=== PATIENT | female | born 1955 | race Caucasian/White ===

== ENCOUNTER 2017-03-26 09:00 | Outpatient (CLI) | payer BC, MEDICARE, SELFPAY ==
[2017-03-26] VITALS (10 sets, daily range): BP systolic 109–150; BP diastolic 58–87; PULSE 76–88; RESP 16–18; BMI 32.5
--- NOTE | 2017-03-26 18:41 | PC.NURSE ---
PRE-MEDICATED WITH TYLENOL 650MG PO AND BENADRYL 50MG PO AT 1215. REMICADE INFUSION STARTED AT 1255 WITH RATE OF 10 ML/HR.
--- NOTE | 2017-03-26 18:44 | PC.NURSE ---
INCREASED INFUSION RATE TO 20 ML/HR AT THIS TIME.
--- NOTE | 2017-03-26 18:46 | PC.NURSE ---
INCREASED INFUSION RATE TO 40 ML/HR AT THIS TIME.
--- NOTE | 2017-03-26 18:50 | PC.NURSE ---
INFUSION RATE INCREASED TO 80 ML/HR AT THIS TIME.
--- NOTE | 2017-03-26 18:52 | PC.NURSE ---
INCREASED INFUSION RATE TO 150 ML/HR AT THIS TIME.
--- NOTE | 2017-03-26 18:57 | PC.NURSE ---
Addendum entered by Surekha Hills RN 03/26/17 18:57: Original Note: INFUSION RATE INCREASED TO 250 ML/HR AT THIS TIME.
--- NOTE | 2017-03-26 19:01 | PC.NURSE ---
REMICADE INFUSION COMPLETE AT THIS TIME.
== END 2017-03-26 15:30 | disposition home or self-care (01) ==
LOC: INF 14:17
PROVIDERS: Visit Provider Specialist
DX: K50.90 Crohn's disease, unspecified, without complications (principal)
CPT/HCPCS: 96413; 96415; J1745

== ENCOUNTER 2017-05-14 12:07 | Outpatient (CLI) | payer BC, MEDICARE, SELFPAY ==
[2017-05-14] VITALS (10 sets, daily range): BP systolic 115–126; BP diastolic 63–78; PULSE 87–91; RESP 20; TEMP 36.6; O2SAT 97–98
== END 2017-05-14 15:30 | disposition home or self-care (01) ==
LOC: INF 12:07
PROVIDERS: Visit Provider Internal Medicine Gastroenterology
DX: K50.90 Crohn's disease, unspecified, without complications (principal)
CPT/HCPCS: 96413; 96415; J1745

== ENCOUNTER 2017-06-08 12:36 | Observation (INO) | payer BC, MEDICARE, SELFPAY ==
[2017-06-08 12:50] VITALS: BP 145/71; PULSE 120; RESP 20; TEMP 37.7; O2SAT 96; BMI 32.0
--- NOTE | 2017-06-08 13:02 | HMH.EDUTC ---
[facility] [place] Disposition Clinical Impression: Severe headache, Fever of unknown origin Disposition: Still a Patient Condition on Discharge: Fair Time of Disposition: 13:17 (assisted to ER by Ellie, room 10) Medical Decision Making - Harry Inquiry Pt receiving controlled substance: No Vital Signs: 06/08/17 12:50 Temperature 99.8 F H Temperature Source Temporal Artery Scan Pulse Rate [Right Radial] 120 H Respiratory Rate 20 Blood Pressure [Right Arm] 145/71 Blood Pressure Mean [Right Arm] 95 02 Sat by Pulse Oximetry 96 Oxygen Delivery Method Room Air - Lab Data Lab results reviewed: Yes: I reviewed the patient's lab results. Lab Results 06/08/17 12:54: Influenza Type A Ag Negative, Influenza Type B Ag Negative - Reevaluation(s) Time: 13:15 Reevaluation #1: Discussed possible differentials and [facility] guidelines. patient wants further workup to find cause of fever. Pt agreeable to be transferred to ER for further evaluation. Report called to Farideh Alonso, INSPECTOR AUTOMATIC TYPEWRITER and room 10 available. [facility] [place] HPI - General Stated complaint: fever,chills Time Seen by Provider: 06/08/17 12:50 Mode of Arrival: Family Vehicle Source of Information: Patient Limitations: No Limitations Description of Symptoms (Recalled from Triage Doc. by RN): PT C/O FEVER FOR THE PAST 3 DAYS WITH CHILLS AND BODYACHES. PT STATES SHE DID HAVE AN ACID WASH DONE ON HER FACE SATURDAY AND THINKS THIS COULD BE THE REASON. HEENT Symptoms (Recalled from RN notes): Yes (FEVER,BODYACHES AND CHILLS) Resp Symptoms (Recalled from RN notes): No Skin Symptoms (Recalled from RN notes): No MS Symptoms (Recalled from RN notes): No Functional Status (Recalled from RN notes): NA - History of Present Illness Provider Complaint: c/o fever 102-103 since Saturday, 3 days ago. Severe headache but no other symptoms . Tylenol helps. Last dose early this morning. was told not to take ibuprofen. No known cause. Wonders if could be due to a facial peel she had on Saturday but reports that went well and there was no complications or rash associated w/ it. No known sick contacts. - Related Data Home Medications Medication Instructions Recorded Confirmed Cholestyramine/Aspartame 4 gm PO DAILY 03/26/17 05/14/17 [Prevalite 4gm Powder Pack] Cyanocobalamin (Vitamin B-12) 1,000 mcg IM MONTHLY 03/26/17 05/14/17 [Cyanocobalamin 1,000mcg/mL Vial] Omeprazole [Omeprazole 20mg 20 mg PO DAILY 03/26/17 05/14/17 Capsule] Zolpidem Tartrate [Ambien] 10 mg PO HS 03/26/17 05/14/17 Allergies Allergy/AdvReac Type Severity Reaction Status Date / Time codeine Allergy Intermediate I-HIVES Verified 03/26/17 17:22 Sulfa (Sulfonamide Allergy Intermediate RED RASH Verified 03/26/17 17:21 Antibiotics) FROM TRUE SULFA DRUGS - Worker's Comp Is this a Worker's Comp case?: No [facility] History I have reviewed the patient's past medical history: Yes Medical History: Denies:: Cancer, Diabetes Mellitus Type 1, Diabetes Mellitus Type 2, Hypertension, MRSA Other Medical History: Reports: Other (Crohn's) Other Surgeries: Yes: Other (cholecystectomy, 4 bowel resections) Amputation: No Fractures: No - Social History Smoking Status: Current every day smoker Tobacco Type: cigarettes Alcohol Intake: never - Psychiatric History Expresses thoughts of harming self/others: None Suicide Plan Description: No Plan ROS Obtained: Yes Systems reviewed as appropriate & no additional complaints - Constitutional Constitutional: Reports as per HPI, Reports body ache, Reports chills, Denies difficulty sleeping, Reports fatigue - Eyes Eyes: Denies eye discharge, Denies eye pain - ENT Ears, Nose, Mouth, and Throat: Denies otalgia, Denies nasal congestion, Denies nasal discharge, Denies post nasal drip, Denies sore throat - Cardiovascular Cardiovascular: Denies chest pain, Denies irregular heart rhythm - Respiratory Respiratory: No cough, No dyspnea - Gastrointestinal Gastrointestingal:
[2017-06-08 13:10] LABS: UTC Influenza A Antigen Negative (Negative); UTC Influenza B Antigen Negative (Negative)
--- NOTE | 2017-06-08 13:13 | ED_ITS ---
[facility] [place] Disposition Clinical Impression: Severe headache, Fever of unknown origin Disposition: Still a Patient Condition on Discharge: Fair Time of Disposition: 13:17 (assisted to ER by Ellie, room 10) Medical Decision Making - Harry Inquiry Pt receiving controlled substance: No Vital Signs: 06/08/17 12:50 Temperature 99.8 F H Temperature Source Temporal Artery Scan Pulse Rate [Right Radial] 120 H Respiratory Rate 20 Blood Pressure [Right Arm] 145/71 Blood Pressure Mean [Right Arm] 95 02 Sat by Pulse Oximetry 96 Oxygen Delivery Method Room Air - Lab Data Lab results reviewed: Yes: I reviewed the patient's lab results. Lab Results 06/08/17 12:54: Influenza Type A Ag Negative, Influenza Type B Ag Negative - Reevaluation(s) Time: 13:15 Reevaluation #1: Discussed possible differentials and [facility] guidelines. patient wants further workup to find cause of fever. Pt agreeable to be transferred to ER for further evaluation. Report called to Farideh Alonso, CONSTRUCTION MANAGEMENT INSTRUCTOR and room 10 available. [facility] [place] HPI - General Stated complaint: fever,chills Time Seen by Provider: 06/08/17 12:50 Mode of Arrival: Family Vehicle Source of Information: Patient Limitations: No Limitations Description of Symptoms (Recalled from Triage Doc. by RN): PT C/O FEVER FOR THE PAST 3 DAYS WITH CHILLS AND BODYACHES. PT STATES SHE DID HAVE AN ACID WASH DONE ON HER FACE SATURDAY AND THINKS THIS COULD BE THE REASON. HEENT Symptoms (Recalled from RN notes): Yes (FEVER,BODYACHES AND CHILLS) Resp Symptoms (Recalled from RN notes): No Skin Symptoms (Recalled from RN notes): No MS Symptoms (Recalled from RN notes): No Functional Status (Recalled from RN notes): NA - History of Present Illness Provider Complaint: c/o fever 102-103 since Saturday, 3 days ago. Severe headache but no other symptoms . Tylenol helps. Last dose early this morning. was told not to take ibuprofen. No known cause. Wonders if could be due to a facial peel she had on Saturday but reports that went well and there was no complications or rash associated w/ it. No known sick contacts. - Related Data Home Medications Medication Instructions Recorded Confirmed Cholestyramine/Aspartame 4 gm PO DAILY 03/26/17 05/14/17 [Prevalite 4gm Powder Pack] Cyanocobalamin (Vitamin B-12) 1,000 mcg IM MONTHLY 03/26/17 05/14/17 [Cyanocobalamin 1,000mcg/mL Vial] Omeprazole [Omeprazole 20mg 20 mg PO DAILY 03/26/17 05/14/17 Capsule] Zolpidem Tartrate [Ambien] 10 mg PO HS 03/26/17 05/14/17 Allergies Allergy/AdvReac Type Severity Reaction Status Date / Time codeine Allergy Intermediate I-HIVES Verified 03/26/17 17:22 Sulfa (Sulfonamide Allergy Intermediate RED RASH Verified 03/26/17 17:21 Antibiotics) FROM TRUE SULFA DRUGS - Worker's Comp Is this a Worker's Comp case?: No [facility] History I have reviewed the patient's past medical history: Yes Medical History: Denies:: Cancer, Diabetes Mellitus Type 1, Diabetes Mellitus Type 2, Hypertension, MRSA Other Medical History: Reports: Other (Crohn's) Other Surgeries: Yes: Other (cholecystectomy, 4 bowel resections) Amputation: No Fractures: No - Social History Smoking Status: Current every day smoker Tobacco Type: cigarettes Alcohol Intake: never - Psychiatric History Expresses thoughts of harming self/others: None
[2017-06-08 13:24] VITALS: BP 127/77; PULSE 107; RESP 18; TEMP 38.3; O2SAT 97; BMI 32.0
[2017-06-08 14:02] LABS: Basophils % 0.4 % (0.1-2.0); Eosinophils % 0.3 % (0.1-12.0); Hematocrit 43.4 % (37.0-47.0); Hemoglobin 14.6 g/dL (12.2-16.2); Lymphocytes # 1.4 K/mm3 (0.7-4.5); Mean Corpuscular HGB Conc 33.7 g/dL (31.8-35.4); Mean Corpuscular Hemoglobin 30.1 pg (27.0-31.2); Mean Corpuscular Volume 89.3 fl (81-99); Mean Platelet Volume 8.3 fl (7.4-10.4); Monocytes % 9.5 % (1.7-9.3); Neutrophils # 7.8 K/mm3 (1.8-7.8); Neutrophils % 75.9 % (37.0-80.0); Platelet Count 186 K/mm3 (142-424); Red Blood Count 4.86 M/mm3 (4.20-5.40); Red Cell Distribution Width 12.6 % (11.5-17.5); White Blood Count 10.3 K/mm3 (4.8-10.8)
--- NOTE | 2017-06-08 14:07 | XR_ITS ---
XR chest 2V COMPARISON: None HISTORY: Fever TECHNIQUE: PA and lateral chest FINDINGS: The lung sidhu are well expanded. There is ill-defined opacity in the right lower lobe posterior basilar segment suggestive of pneumonic infiltrate. The cardiac silhouette is normal and the vascularity is normal and is no pleural fluid. IMPRESSION: Ill-defined focal pneumonic infiltrate right lower lobe
[2017-06-08 14:24] LABS: Alanine Aminotransferase 20 U/L (12-78); Albumin Level 3.3 gm/dL (3.4-5.0); Albumin/Globulin Ratio 0.7 (1.1-1.8); Alkaline Phosphatase 88 U/L (46-116); Aspartate Amino Transferase 17 U/L (15-37); Bilirubin,Total 0.3 mg/dL (0.2-1.0); Blood Urea Nitrogen 5 mg/dL (7-18); Calcium 8.8 mg/dL (8.5-10.1); Carbon Dioxide 25 mmol/L (21.0-32.0); Chloride 98 mmol/L (98-107); Creatinine Clearance Estimated 74 mL/min (0-300); Estimated Glomerular Filt Rate 73 ml/min (>60); GFR (African American) 88 ML/MIN (>60); Globulin 4.8 gm/dl (1.3-3.2); Glucose 117 mg/dL (74-106); Sodium 134 mmol/L (136-145); Total Protein,Serum 8.1 gm/dL (6.4-8.2)
--- NOTE | 2017-06-08 14:25 | HMH.EDFEV ---
ED Disposition Clinical Impression: Severe headache, Right lower lobe pneumonia, Immunocompromised, acquired, Crohn's disease Clinical Impression: (Ruled Out): Fever of unknown origin Disposition: Still a Patient Condition on Discharge: Fair Referrals: Provider,Amanda, [Primary Care Provider] - Malathi Masterson MD [Staff Physician] - - Critical Care Critical Care Time: No Attestation: On 06/08/17, the high probability of a clinically significant, sudden or life threatening deterioration of the following system(s) required my full and direct attention, intervention and personal management. The time I documented below is in addition to time spent performing reported procedures but includes the following listed in this critical care notation. Medical Decision Making - Harry Inquiry Pt receiving controlled substance: No Harry was queried for this patient: No Vital Signs: 06/08/17 12:50 06/08/17 13:24 06/08/17 15:14 Temperature 99.8 F H 101.0 F H 103 F H Temperature Source Temporal Artery Scan Oral Oral Pulse Rate [Right Radial] 120 H 107 H 121 H Respiratory Rate 20 18 20 Blood Pressure [Right Arm] 145/71 127/77 157/92 Blood Pressure Mean [Right Arm] 95 93 113 Blood Pressure Source [Right Arm] Automatic Cuff Automatic Cuff Blood Pressure Position [Right Arm] Sitting Sitting 02 Sat by Pulse Oximetry 96 97 99 Oxygen Delivery Method Room Air Room Air Room Air - Lab Data Lab Results 06/08/17 12:54: Influenza Type A Ag Negative, Influenza Type B Ag Negative 06/08/17 13:45: WBC 10.3, RBC 4.86, Hgb 14.6, Hct 43.4, MCV 89.3, MCH 30.1, MCHC 33.7, RDW 12.6, Plt Count 186, MPV 8.3, Neut % (Auto) 75.9, Lymph % (Auto) 14.0, Saline % (Auto) 9.5 H, Eos % (Auto) 0.3, Baso % (Auto) 0.4, Neut # (Auto) 7.8, Lymph # (Auto) 1.4, Saline # (Auto) 1.0, Eos # (Auto) 0.0, Baso # (Auto) 0.0 06/08/17 13:45: Sodium 134 L, Potassium 4.0, Chloride 98, Carbon Dioxide 25, Anion Gap 15.0, BUN 5 L, Creatinine 0.80, Estimated Creat Clear 74, Estimated GFR 73, Est GFR ( Amer) 88, Glucose 117 H, Calcium 8.8, Total Bilirubin 0.3, AST 17, ALT 20, Alkaline Phosphatase 88, Total Protein 8.1, Albumin 3.3 L, Globulin 4.8 H, Albumin/Globulin Ratio 0.7 L 06/08/17 13:45: Lactic Acid 1.4 06/08/17 15:05: Group A Strep Rapid Negative Result diagrams: 06/08/17 13:45 06/08/17 13:45 Orders (Tests/Meds): ED MEDICATIONS Discontinued Medications Generic Name Dose Route Start Last Admin Trade Name Freq PRN Reason Stop Dose Admin Acetaminophen 1,000 mg 06/08/17 15:14 06/08/17 15:15 Tylenol 500mg Tablet PO 06/08/17 15:15 1,000 mg ONCE ONE Administration Sodium Chloride 500 mls @ 999 mls/hr 06/08/17 13:30 06/08/17 13:59 Sod Chlor 0.9% 1000ml Bag IV 06/08/17 14:00 Not Given .Q31M HOMAR Sodium Chloride 1,000 mls @ 999 mls/hr 06/08/17 14:00 06/08/17 13:56 Sod Chlor 0.9% 1000ml Bag IV 06/08/17 15:00 999 mls/hr .Q1H1M HOMAR Administration Ondansetron HCl 4 mg 06/08/17 13:52 06/08/17 13:56 Zofran 4mg/2ml Vial IV 06/08/17 13:53 4 mg ONCE ONE Administration ORDERS Category Date Time Status UA [Urinalysis and Microscopic] Stat Lab 06/08/17 14:07 Ordered Blood Culture Stat Micro 06/08/17 13:45 Received Strep Screen Confirmation Stat Micro 06/08/17 15:05 Received Medical Decision Narrative: 1330 The radiologist contacted me that the patient has a right lower lobe pneumonia. [address] Masterson loss prevention/safety district manager for unassigned to admit he asked me to discuss her with her pcp in [facility]. [address] Siddiqui who asked about the patient preference and the patient said i am not going any where . she wants to be admitted here and I called Dr Masterson again. Fever HPI - General Chief Complaint: Fever Stated Complaint: fever,chills Time Seen by Provider: 06/08/17 12:50 Mode of Arrival: Family Vehicle Source of Information: Patient Limitations: No Limitations Description of Sy
[2017-06-08 14:26] LABS: Lactic Acid 1.4 mmol/L (0.4-2.0)
--- NOTE | 2017-06-08 14:28 | ED_ITS ---
ED Disposition Clinical Impression: Severe headache, Right lower lobe pneumonia, Immunocompromised, acquired, Crohn 's disease Clinical Impression: (Ruled Out): Fever of unknown origin Disposition: Still a Patient Condition on Discharge: Fair Referrals: Provider,Amanda, [Primary Care Provider] - Malathi Masetrson MD [Staff Physician] - - Critical Care Critical Care Time: No Attestation: On 06/08/17, the high probability of a clinically significant, sudden or life threatening deterioration of the following system(s) required my full and direct attention, intervention and personal management. The time I documented below is in addition to time spent performing reported procedures but includes the following listed in this critical care notation. Medical Decision Making - Harry Inquiry Pt receiving controlled substance: No Harry was queried for this patient: No Vital Signs: 06/08/17 12:50 06/08/17 13:24 06/08/17 15:14 Temperature 99.8 F H 101.0 F H 103 F H Temperature Source Temporal Artery Scan Oral Oral Pulse Rate [Right Radial] 120 H 107 H 121 H Respiratory Rate 20 18 20 Blood Pressure [Right Arm] 145/71 127/77 157/92 Blood Pressure Mean [Right Arm] 95 93 113 Blood Pressure Source [Right Arm] Automatic Cuff Automatic Cuff Blood Pressure Position [Right Arm] Sitting Sitting 02 Sat by Pulse Oximetry 96 97 99 Oxygen Delivery Method Room Air Room Air Room Air - Lab Data Lab Results 06/08/17 12:54: Influenza Type A Ag Negative, Influenza Type B Ag Negative 06/08/17 13:45: WBC 10.3, RBC 4.86, Hgb 14.6, Hct 43.4, MCV 89.3, MCH 30.1, MCHC 33.7, RDW 12.6, Plt Count 186, MPV 8.3, Neut % (Auto) 75.9, Lymph % (Auto) 14.0, Gaines % (Auto) 9.5 H, Eos % (Auto) 0.3, Baso % (Auto) 0.4, Neut # (Auto) 7.8, Lymph # (Auto) 1.4, Gaines # (Auto) 1.0, Eos # (Auto) 0.0, Baso # (Auto) 0.0 06/08/17 13:45: Sodium 134 L, Potassium 4.0, Chloride 98, Carbon Dioxide 25, Anion Gap 15.0, BUN 5 L, Creatinine 0.80, Estimated Creat Clear 74, Estimated GFR 73, Est GFR ( Amer) 88, Glucose 117 H, Calcium 8.8, Total Bilirubin 0.3, AST 17, ALT 20, Alkaline Phosphatase 88, Total Protein 8.1, Albumin 3.3 L, Globulin 4.8 H, Albumin/Globulin Ratio 0.7 L 06/08/17 13:45: Lactic Acid 1.4 06/08/17 15:05: Group A Strep Rapid Negative Result diagrams: 06/08/17 13:45 06/08/17 13:45 Orders (Tests/Meds): ED MEDICATIONS Discontinued Medications Generic Name Dose Route Start Last Admin Trade Name Freq PRN Reason Stop Dose Admin Acetaminophen 1,000 mg 06/08/17 15:14 06/08/17 15:15 Tylenol 500mg Tablet PO 06/08/17 15:15 1,000 mg ONCE ONE Administration Sodium Chloride 500 mls @ 999 mls/hr 06/08/17 13:30 06/08/17 13:59 Sod Chlor 0.9% 1000ml Bag IV 06/08/17 14:00 Not Given .Q31M HOMAR Sodium Chloride 1,000 mls @ 999 mls/hr 06/08/17 14:00 06/08/17 13:56 Sod Chlor 0.9% 1000ml Bag IV 06/08/17 15:00 999 mls/hr .Q1H1M HOMAR Administration Ondansetron HCl 4 mg 06/08/17 13:52 06/08/17 13:56 Zofran 4mg/2ml Vial IV 06/08/17 13:53 4 mg ONCE ONE Administration ORDERS Category Date Time Status UA [Urinalysis and Microscopic] Stat Lab 06/08/17 14:07 Ordered Blood Culture Stat Micro 06/08/17 13:45 Received Strep Screen Confirmation Stat Micro 06/08/17 15:05 Received
[2017-06-08 15:14] VITALS: BP 157/92; PULSE 121; RESP 20; TEMP 39.4; O2SAT 99
[2017-06-08 15:22] LABS: Strep Scrn Group A (Rapid) Negative (Negative)
--- NOTE | 2017-06-08 15:35 | PC.NURSE ---
Dr Wagner discussed case with Dr Masterson
--- NOTE | 2017-06-08 15:41 | PC.NURSE ---
Dr Blevins paged per request of Dr Masterson
--- NOTE | 2017-06-08 15:46 | PC.NURSE ---
Dr Wagner discussed case with Dr Siddiqui instrumentation controls engineer for Dr Blevins
--- NOTE | 2017-06-08 15:47 | PC.NURSE ---
Dr Wagner discussed case with Dr Masterson again
[2017-06-08 15:54] LABS: Microscopic, Urine URINE MICROSCOPIC (MICROSCOPIC)
[2017-06-08 15:57] LABS: Appearance,Urine SL CLOUDY (Clear); Bilirubin,Urine Negative (Negative); Blood, Urine 1+ (Negative); Color,Urine YELLOW (Yellow); Glucose,Urine (UA) Negative (Negative); Ketones,Urine Negative (Negative); Leukocyte Esterase,Urine Negative (Negative); Nitrate,Urine Negative (Negative); Protein,Urine Negative (Negative); Specific Gravity, Urine <= 1.005 (1.005-1.030); Urobilinogen,Urine 0.2 EU/dl (0.2)
[2017-06-08 16:08] LABS: Bacteria,Urine 2+ /lpf
[2017-06-08 16:55] VITALS: BP 115/72; PULSE 89; RESP 18; TEMP 37.1; O2SAT 94; BMI 33.3
--- NOTE | 2017-06-08 16:58 | PC.NURSE ---
PHOTOGRAMMETRIC STEREO COMPILER CALLED AND STATED THAT ROOM WOULD BE READY IN 10 MIN.
--- NOTE | 2017-06-08 17:32 | PC.NURSE ---
REPORT CALLED TO ROSALBA PEDRAZA RN
--- NOTE | 2017-06-08 19:15 | PC.NURSE ---
PT FULL CODE, REPORT FROM KEVIN
--- NOTE | 2017-06-08 19:36 | PC.NURSE ---
report given to naveed uribe rn
[2017-06-08 20:00] VITALS: BP 145/70; PULSE 99; RESP 18; TEMP 37.2; O2SAT 97
--- NOTE | 2017-06-08 21:32 | HMH.HP ---
*Admission Date: 06/08/17 *Chief complaint: Shaking chills *History of present illness: This 62-year-old white female presented to the emergency room at [facility]. She complained of having fever and shaking chills for the past 3 or 4 days. Her temperature had gone to 103 today she was concerned. She does take Remicade for Crohn's disease which she has had for over 30 years. She denies cough congestion or stomach pain. She states she had a relatively normal bowel movement this morning. She takes cholestyramine daily. Though her white count was not elevated the emergency room doctor was concerned about her presentation and wanted to admit her for some IV antibiotics. She did receive some Rocephin and azithromycin in the emergency room. She continues to complain of chills. Her chest x-ray raised the question of possible infiltrate though she has not been symptomatic for pulmonary symptoms. [facility] History Medical History: Denies:: Cancer, Diabetes Mellitus Type 1, Diabetes Mellitus Type 2, Hypertension, MRSA, Peripheral Vascular Disease Other Medical History: Reports: Other (Crohn's) Other Surgeries: Yes: Appendectomy, Tubal Ligation, Other (cholecystectomy, 4 bowel resections) Amputation: No Fractures: No Comment: She has had for bowel resections related to her Crohn's. She has had difficulty with fistulas. - *Social History Educational Level: Attended College Smoking Status: Current every day smoker Tobacco Type: cigarettes # Packs/Day (cigarettes): 20 Alcohol Intake: never Occupational Status: disabled Household Members: spouse - Psychiatric History Expresses thoughts of harming self/others: None Suicide Plan Description: No Plan *Family Hx:: Cancer, Diabetes, Hyperlipidemia, Stroke, Thyroid Disorder, Tuberculosis Comment: Her father of colon/stomach cancer at age 75. Her mother of diabetes complications at age 82. She has 5 sisters and one brother. She has 2 sons. She is 4 para 2 AB 2. : 4 Para: 2 A: 2 LMP comments: post menopausal Review of Systems - Constitutional Reports body ache(s), Reports chills, Reports fever(s) - Eyes Denies change in vision - ENT Denies bleeding gums, Denies dizziness, Denies difficulty swallowing - *Cardiovascular Denies chest pain - *Respiratory Denies change in phlegm color, Denies chest congestion, Denies cough, Denies shortness of breath, Denies coughing up blood - *Gastrointestinal Denies abdominal pain, Denies change in bowel habits, Denies coffee ground vomit, Denies cramping, Denies loose stools, Denies difficulty swallowing - *Genitourinary Denies abnormal vaginal bleeding - *Musculoskeletal Denies abnormal walking, Denies joint pain - Integumentary/Breasts Denies change in skin color - *Neurologic Denies abnormal hearing, Denies behavioral changes, Denies dizziness, Denies loss of vision - Hematologic/Lymphatic Denies easy bruising Meds Home Medications Medication Instructions Recorded Confirmed Type Cholestyramine/Aspartame 4 gm PO DAILY 03/26/17 06/08/17 History [Prevalite 4gm Powder Pack] Cyanocobalamin (Vitamin B-12) 1,000 mcg IM MONTHLY 03/26/17 06/08/17 History [Cyanocobalamin 1,000mcg/mL Vial] Omeprazole [Omeprazole 20mg 20 mg PO DAILY 03/26/17 06/08/17 History Capsule] Zolpidem Tartrate [Ambien] 10 mg PO HS 03/26/17 06/08/17 History Allergies Allergy/AdvReac Type Severity Reaction Status Date / Time codeine Allergy Intermediate Hives Verified 06/08/17 18:19 Sulfa (Sulfonamide Allergy Intermediate RED RASH Verified 06/08/17 18:19 Antibiotics) FROM TRUE SULFA DRUGS Exam Vital signs and Labs for Last 24 Hours: Temp Pulse Resp BP Pulse Ox 99.0 F 99 H 18 145/70 97 06/08/17 20:00 06/08/17 20:00 06/08/17 20:00 06/08/17 20:00 06/08/17 20:00 I & O for Last 24 hours: Intake & Output 06/06/17 06/07/17 06/08/17 06/09/17 11:59 11:59 11:59 11:59
--- NOTE | 2017-06-08 21:35 | P.HP_ITS ---
*Admission Date: 06/08/17 *Chief complaint: Shaking chills *History of present illness: This 62-year-old white female presented to the emergency room at [facility]. She complained of having fever and shaking chills for the past 3 or 4 days. Her temperature had gone to 103 today she was concerned. She does take Remicade for Crohn's disease which she has had for over 30 years. She denies cough congestion or stomach pain. She states she had a relatively normal bowel movement this morning. She takes cholestyramine daily. Though her white count was not elevated the emergency room doctor was concerned about her presentation and wanted to admit her for some IV antibiotics. She did receive some Rocephin and azithromycin in the emergency room. She continues to complain of chills. Her chest x-ray raised the question of possible infiltrate though she has not been symptomatic for pulmonary symptoms. [facility] History Medical History: Denies:: Cancer, Diabetes Mellitus Type 1, Diabetes Mellitus Type 2, Hypertension, MRSA, Peripheral Vascular Disease Other Medical History: Reports: Other (Crohn's) Other Surgeries: Yes: Appendectomy, Tubal Ligation, Other (cholecystectomy, 4 bowel resections) Amputation: No Fractures: No Comment: She has had for bowel resections related to her Crohn's. She has had difficulty with fistulas. - *Social History Educational Level: Attended College Smoking Status: Current every day smoker Tobacco Type: cigarettes # Packs/Day (cigarettes): 20 Alcohol Intake: never Occupational Status: disabled Household Members: spouse - Psychiatric History Expresses thoughts of harming self/others: None Suicide Plan Description: No Plan *Family Hx:: Cancer, Diabetes, Hyperlipidemia, Stroke, Thyroid Disorder, Tuberculosis Comment: Her father of colon/stomach cancer at age 75. Her mother of diabetes complications at age 82. She has 5 sisters and one brother. She has 2 sons. She is 4 para 2 AB 2. : 4 Para: 2 A: 2 LMP comments: post menopausal Review of Systems - Constitutional Reports body ache(s), Reports chills, Reports fever(s) - Eyes Denies change in vision - ENT Denies bleeding gums, Denies dizziness, Denies difficulty swallowing - *Cardiovascular Denies chest pain - *Respiratory Denies change in phlegm color, Denies chest congestion, Denies cough, Denies shortness of breath, Denies coughing up blood - *Gastrointestinal Denies abdominal pain, Denies change in bowel habits, Denies coffee ground vomit , Denies cramping, Denies loose stools, Denies difficulty swallowing - *Genitourinary Denies abnormal vaginal bleeding - *Musculoskeletal Denies abnormal walking, Denies joint pain - Integumentary/Breasts Denies change in skin color - *Neurologic Denies abnormal hearing, Denies behavioral changes, Denies dizziness, Denies loss of vision - Hematologic/Lymphatic Denies easy bruising Meds Home Medications Medication Instructions Recorded Confirmed Type Cholestyramine/Aspartame 4 gm PO DAILY 03/26/17 06/08/17 History [Prevalite 4gm Powder Pack] Cyanocobalamin (Vitamin B-12) 1,000 mcg IM MONTHLY 03/26/17 06/08/17 History [Cyanocobalamin 1,000mcg/mL Vial] Omeprazole [Omeprazole 20mg 20 mg PO DAILY 03/26/17 06/08/17 History Capsule] Zolpidem Tartrate [Ambien] 10 mg PO HS 03/26/17 06/08/17 History Allergies Allergy/AdvReac Type Severity Reaction Status Date / Time
--- NOTE | 2017-06-08 21:39 | PC.NURSE ---
Dr Masterson here. New orders received
[2017-06-08 21:45] VITALS: PULSE 99; O2SAT 97
[2017-06-09 04:00] VITALS: BP 98/50; PULSE 66; RESP 18; TEMP 36.9; O2SAT 100
--- NOTE | 2017-06-09 05:53 | PC.NURSE ---
PT SLEPT INTERVALS THIS SHIFT. RESPIRATIONS EVEN AND UNLABORED WITH LUNGS EQUAL AND CLEAR THROUGHOUT. NO COUGH NOTED. STILL NEED SPUTUM SPECIMEN. SPECIMEN CUP ON BEDSIDE TABLE, REMINDED PT ABOUT IT. IV SECURE AND PATENT. PT HAS ORDER FOR LABS THIS A.M. PT STABLE. WILL CONTINUE TO MONITOR. REPORT TO BE GIVEN TO ONCOMING NURSE.
[2017-06-09 06:26] LABS: Basophils # 0.1 K/mm3 (0-0.2); Basophils % 0.6 % (0.1-2.0); Eosinophils % 0.4 % (0.1-12.0); Hematocrit 37.2 % (37.0-47.0); Lymphocytes # 1.7 K/mm3 (0.7-4.5); Lymphocytes % 19.7 K/mm3 (10-50); Mean Corpuscular HGB Conc 32.4 g/dL (31.8-35.4); Mean Corpuscular Hemoglobin 29.5 pg (27.0-31.2); Mean Corpuscular Volume 91.1 fl (81-99); Mean Platelet Volume 8.3 fl (7.4-10.4); Monocytes # 0.9 K/mm3 (0.1-1.0); Monocytes % 10.7 % (1.7-9.3); Neutrophils # 5.8 K/mm3 (1.8-7.8); Neutrophils % 68.6 % (37.0-80.0); Platelet Count 168 K/mm3 (142-424); Red Blood Count 4.08 M/mm3 (4.20-5.40); Red Cell Distribution Width 12.8 % (11.5-17.5); White Blood Count 8.5 K/mm3 (4.8-10.8)
[2017-06-09 06:52] LABS: Alanine Aminotransferase 14 U/L (12-78); Albumin Level 2.6 gm/dL (3.4-5.0); Albumin/Globulin Ratio 0.8 (1.1-1.8); Alkaline Phosphatase 69 U/L (46-116); Anion Gap 13.4 mEq/L (5-15); Aspartate Amino Transferase 11 U/L (15-37); Bilirubin,Total 0.2 mg/dL (0.2-1.0); Blood Urea Nitrogen 6 mg/dL (7-18); Calcium 7.7 mg/dL (8.5-10.1); Carbon Dioxide 23 mmol/L (21.0-32.0); Chloride 106 mmol/L (98-107); Creatinine Clearance Estimated 77 mL/min (0-300); Creatinine,Serum 0.67 mg/dL (0.55-1.02); Estimated Glomerular Filt Rate 89 ml/min (>60); GFR (African American) 108 ML/MIN (>60); Globulin 3.3 gm/dl (1.3-3.2); Magnesium 1.5 mg/dL (1.4-2.2); Potassium 3.4 mmoL/L (3.5-5.1); Sodium 139 mmol/L (136-145); Total Protein,Serum 5.9 gm/dL (6.4-8.2)
[2017-06-09 06:53] LABS: Glucose 161 mg/dL (74-106)
--- NOTE | 2017-06-09 07:18 | PC.NURSE ---
REPORT GIVEN TO Leonila SMITH W/C
[2017-06-09 08:00] VITALS: BP 140/65; PULSE 85; RESP 18; TEMP 36.3; O2SAT 95
--- NOTE | 2017-06-09 08:13 | PC.NURSE ---
0715 - Report received from Collins Ibrahim RN
--- NOTE | 2017-06-09 09:27 | P.CONPHA_ITS ---
[facility] Pharmacy VTE Monitoring - Patient Demographics Admission date: 06/09/17 Report Date: 06/09/17 Time: 09:26 Allergies/Adverse Reactions: Patient Allergies codeine Allergy (Intermediate, Verified 06/08/17 18:19) Hives Sulfa (Sulfonamide Antibiotics) Allergy (Intermediate, Verified 06/08/17 18:19) RED RASH FROM TRUE SULFA DRUGS Height: 1.57 m Weight: 82.645 kg Patient Problems: Current Active Problems Severe headache (Acute) Right lower lobe pneumonia (Acute) Immunocompromised, acquired (Chronic) Crohn's disease (Chronic) Fever and chills (Acute) - VTE Risk Labs: VTE Related Lab Results Hgb 12.0 g/dL (12.2-16.2) L D 06/09/17 06:05 Hct 37.2 % (37.0-47.0) 06/09/17 06:05 Plt Count 168 K/mm3 (142-424) 06/09/17 06:05 BUN 6 mg/dL (7-18) L 06/09/17 06:05 Creatinine 0.67 mg/dL (0.55-1.02) 06/09/17 06:05 Estimated Creat Clear 77 mL/min (0-300) 06/09/17 06:05 Was VTE Risk Assessment Performed: Yes VTE Score: 2 VTE Risk Level: Low Risk - Prophylaxis Types of VTE Prophylaxis: TEDS Knee High Location of Applied Device: Bilateral Lower Extremeties - VTE Diagnosis Confirmed Comment: ED KAY ORDERED
--- NOTE | 2017-06-09 10:19 | P.PN_ITS ---
Internal Medicine - PN: Subj *Date: 06/09/17 *Time: 10:18 Interval history: She feels much better this morning. She does not have chills. She does not have fever. Her white blood cell count is normal. Her abdomen is soft and her lungs are clear. She would like to go home today. Exam Vital signs and Labs for Last 24 Hours: Temp Pulse Resp BP Pulse Ox 97.4 F L 85 18 140/65 95 06/09/17 08:00 06/09/17 08:00 06/09/17 08:00 06/09/17 08:00 06/09/17 08:00 Laboratory Results - last 24 hr 06/09/17 06:05: WBC 8.5, RBC 4.08 L, Hgb 12.0 L D, Hct 37.2, MCV 91.1, MCH 29.5 , MCHC 32.4, RDW 12.8, Plt Count 168, MPV 8.3, Neut % (Auto) 68.6, Lymph % (Auto ) 19.7, Antelope % (Auto) 10.7 H, Eos % (Auto) 0.4, Baso % (Auto) 0.6, Neut # (Auto ) 5.8, Lymph # (Auto) 1.7, Antelope # (Auto) 0.9, Eos # (Auto) 0.0, Baso # (Auto) 0.1 06/09/17 06:05: Sodium 139, Potassium 3.4 L, Chloride 106, Carbon Dioxide 23, Anion Gap 13.4, BUN 6 L, Creatinine 0.67, Estimated Creat Clear 77, Estimated GFR 89, Est GFR ( Amer) 108 D, Glucose 161 H D, Calcium 7.7 L D, Magnesium 1.5, Total Bilirubin 0.2, AST 11 L D, ALT 14 D, Alkaline Phosphatase 69, Total Protein 5.9 L D, Albumin 2.6 L D, Globulin 3.3 H, Albumin/Globulin Ratio 0.8 L I & O for Last 24 hours: Intake & Output 06/06/17 06/07/17 06/08/17 06/09/17 11:59 11:59 11:59 11:59 Intake Total 832 / 832 Output Total 400 / 400 Balance 432 / 432 Weight 182 lb 3.2 oz - Constitutional no acute distress - *Routine Abdominal Exam Present: soft. 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 Possible discharge later today.
[2017-06-09 15:34] VITALS: BP 124/69; PULSE 90; RESP 18; TEMP 36.5; O2SAT 96
--- NOTE | 2017-06-09 16:01 | PC.NURSE ---
Pt is A&Ox4 in NAD. VSS. Afebrile. Heart rate reg. Lungs CTA. Pt denies pain. IV (R) wrist infusing NS @ 100ml/hr /s difficulty. No s/s of infiltration or infection at insertion site. Bed in low position, call williamson within reach. Will continue to monitor.
--- NOTE | 2017-06-10 22:31 | HMH.DCSUM ---
General - General Admission date: 06/08/17 Discharge date: 06/09/17 HPI HPI: This 62-year-old white female presented to the emergency room at [facility]. She complained of having fever and shaking chills for the past 3 or 4 days. Her temperature had gone to 103 today and she was concerned. She does take Remicade for Crohn's disease which she has had for over 30 years. She denies cough congestion or stomach pain. She states she had a relatively normal bowel movement this morning. She takes cholestyramine daily. Though her white count was not elevated, the emergency room doctor was concerned about her presentation and wanted to admit her for some IV antibiotics. She did receive some Rocephin and azithromycin in the emergency room. She continues to complain of chills. Her chest x-ray raised the question of possible infiltrate though she has not been symptomatic for pulmonary symptoms. Hospital Course Hospital Course: By the next day, she felt much better. She did not have chills. She did not have fever. Her white blood cell count was normal. Her abdomen was soft and her lungs were clear. She wanted to go home and was stable to be discharged. Objective Vital signs: Temp Pulse Resp BP Pulse Ox 97.7 F 90 18 124/69 96 06/09/17 15:34 06/09/17 15:34 06/09/17 15:34 06/09/17 15:34 06/09/17 15:34 Narrative: - Constitutional no acute distress Comments: She is chilling in bed. - *Routine HEENT Exam Eye: Present: PERRL ENT: Present: mucous membranes dry - *Routine Neck Exam Present: supple - Routine Chest/Breast/Axilla Exam Comments: Normal configuration - *Routine Respiratory Exam Present: decreased breath sounds, CTA bilaterally - *Routine Cardiovascular Exam Present: RRR - *Routine Abdominal Exam Present: soft. Absent: tenderness Comments: Hyperactive bowel sounds - *Routine Rectal Exam Comments: Deferred at this time - *Routine Extremities Exam Absent: edema - Routine Back/Spine/Pelvis Exam Back/Spine: Absent: CVA tenderness - *Routine Skin Exam Present: intact - *Routine Neurological Exam Present: alert, oriented X3. Absent: altered mental status DS: Diagnosis - Discharge Diagnosis (1) Fever and chills Status: Acute (2) Right lower lobe pneumonia Status: Acute (3) Severe headache Status: Acute (4) Crohn's disease Status: Chronic (5) Immunocompromised, acquired Status: Chronic Discharge Plan - Patient Discharge Instructions ACTIVITY: Continue current activity DIET: continue same diet Additional Instructions: The patient was informed regarding her antibiotic treatment. She has received 2 total doses of Rocephin. She was given 1 dose of Levaquin last evening. Her shaking chills resolved quickly. She will be continued on Cefdinir 300mg bid. If she were to have recurrence of her shaking chills it may mean that we need to resort to continue doses of Levaquin. I do feel that her symptoms are related to her Crohn's, thus gram negatives could be involved. Patient Instructions: DI for Pneumonia -- Adult - Follow up Plan Follow up with: Tobi Jimenez [Referring] - Disposition: Home, Self-Half-Way Medications: Home Medications Medication Instructions Recorded Confirmed Type Cholestyramine/Aspartame 4 gm PO DAILY 03/26/17 06/08/17 History [Prevalite 4gm Powder Pack] Cyanocobalamin (Vitamin B-12) 1,000 mcg IM MONTHLY 03/26/17 06/08/17 History [Cyanocobalamin 1,000mcg/mL Vial] Zolpidem Tartrate [Ambien] 10 mg PO HS 03/26/17 06/08/17 History Prescriptions/Medication Reconciliation: New Nicotine [Nicoderm 21mg/24hr patch] 21 mg TD DAILYP PRN #30 patch.td24 PRN Reason: Nicotine Cravings Cefdinir [Omnicef 300mg Capsule] 300 mg PO BID #14 cap Continue Zolpidem Tartrate [Ambien] 10 mg PO HS Cholestyramine/Aspartame [Prevalite 4gm Powder Pack] 4 gm PO DAILY Cy
--- NOTE | 2017-06-10 22:35 | P.DS_ITS ---
General - General Admission date: 06/08/17 Discharge date: 06/09/17 HPI HPI: This 62-year-old white female presented to the emergency room at [facility]. She complained of having fever and shaking chills for the past 3 or 4 days. Her temperature had gone to 103 today and she was concerned. She does take Remicade for Crohn's disease which she has had for over 30 years. She denies cough congestion or stomach pain. She states she had a relatively normal bowel movement this morning. She takes cholestyramine daily. Though her white count was not elevated, the emergency room doctor was concerned about her presentation and wanted to admit her for some IV antibiotics. She did receive some Rocephin and azithromycin in the emergency room. She continues to complain of chills. Her chest x-ray raised the question of possible infiltrate though she has not been symptomatic for pulmonary symptoms. Hospital Course Hospital Course: By the next day, she felt much better. She did not have chills. She did not have fever. Her white blood cell count was normal. Her abdomen was soft and her lungs were clear. She wanted to go home and was stable to be discharged. Objective Vital signs: Temp Pulse Resp BP Pulse Ox 97.7 F 90 18 124/69 96 06/09/17 15:34 06/09/17 15:34 06/09/17 15:34 06/09/17 15:34 06/09/17 15:34 Narrative: - Constitutional no acute distress Comments: She is chilling in bed. - *Routine HEENT Exam Eye: Present: PERRL ENT: Present: mucous membranes dry - *Routine Neck Exam Present: supple - Routine Chest/Breast/Axilla Exam Comments: Normal configuration - *Routine Respiratory Exam Present: decreased breath sounds, CTA bilaterally - *Routine Cardiovascular Exam Present: RRR - *Routine Abdominal Exam Present: soft. Absent: tenderness Comments: Hyperactive bowel sounds - *Routine Rectal Exam Comments: Deferred at this time - *Routine Extremities Exam Absent: edema - Routine Back/Spine/Pelvis Exam Back/Spine: Absent: CVA tenderness - *Routine Skin Exam Present: intact - *Routine Neurological Exam Present: alert, oriented X3. Absent: altered mental status DS: Diagnosis - Discharge Diagnosis (1) Fever and chills Status: Acute (2) Right lower lobe pneumonia Status: Acute (3) Severe headache Status: Acute (4) Crohn's disease Status: Chronic (5) Immunocompromised, acquired Status: Chronic Discharge Plan - Patient Discharge Instructions ACTIVITY: Continue current activity DIET: continue same diet Additional Instructions: The patient was informed regarding her antibiotic treatment. She has received 2 total doses of Rocephin. She was given 1 dose of Levaquin last evening. Her shaking chills resolved quickly. She will be continued on Cefdinir 300mg bid. If she were to have recurrence of her shaking chills it may mean that we need to resort to continue doses of Levaquin. I do feel that her symptoms are related to her Crohn's, thus gram negatives could be involved. Patient Instructions: DI for Pneumonia -- Adult - Follow up Plan Follow up with: Tobi Jimenez [Referring] - Disposition: Home, Self-Chcf Medications: Home Medications Medication Instructions Recorded Confirmed Type Cholestyramine/Aspartame 4 gm PO DAILY 03/26/17 06/08/17 History
== END 2017-06-09 17:04 | disposition home or self-care (01) ==
LOC: UTC 13:17 → ER 13:24 → 2ND 16:22
PROVIDERS: Nurse Practitioner Family; Admitting Provider Family Medicine; Emergency Provider Emergency Medicine; PCP Family Medicine; Visit Provider Family Medicine
DX: J18.1 Lobar pneumonia, unspecified organism (principal); K50.90 Crohn's disease, unspecified, without complications
CPT/HCPCS: 36415; 71046; 80053; 81001; 83605; 83735; 85025; 87040; 87086; 87430; 87804; 96365; 96367; 96375; 99285; G0378; J0456; J2405

== ENCOUNTER 2017-07-05 12:18 | Outpatient (CLI) | payer BC, MEDICARE, SELFPAY ==
[2017-07-05] VITALS (10 sets, daily range): BP systolic 108–160; BP diastolic 55–76; PULSE 66–79; RESP 20; TEMP 36.7–37.1; O2SAT 95–98
== END 2017-07-05 15:20 | disposition home or self-care (01) ==
LOC: INF 12:18
PROVIDERS: PCP Family Medicine; Visit Provider Internal Medicine Gastroenterology
DX: K50.90 Crohn's disease, unspecified, without complications (principal)
CPT/HCPCS: 96413; 96415; J1745

== ENCOUNTER → 2017-08-13 13:31 | Outpatient (CLI) | payer BC, MEDICARE, SELFPAY ==
--- NOTE | 2017-08-13 13:34 | MR_ITS ---
MR shoulder RT wo con COMPARISON: None HISTORY: Rotator cuff tear, right shoulder pain with limited range of motion and weakness ORDERING PHYSICIAN: Gurwinder Monroy PATIENT AGE: 62 years TECHNIQUE: Routine multiplanar multiecho sequences are performed without contrast. FINDINGS: There is complete tear of the supraspinatus tendon with mild retraction of the musculotendinous fibers. Small amount fluid is present in the subdeltoid region. Hypertrophic changes are present at the acromioclavicular joint with spurring along the inferior aspect of the acromion. There is tendinopathy/tendinosis of the infraspinatus tendon as well as the subscapularis tendon. Teres minor tendon appears intact. No obvious labral tear. Bicipital tendon is in place. There is a small shoulder joint effusion. IMPRESSION: 1. Complete tear of the supraspinatus tendon with mild retraction of the musculotendinous fibers 2. Shoulder joint effusion. 3. Tendinopathy/tendinosis of the infraspinatus and subscapularis tendons
== END ==
PROVIDERS: PCP Family Medicine; Visit Provider Orthopaedic Surgery Adult Reconstructive Orthopaedic Surgery
DX: M75.101 Unspecified rotator cuff tear or rupture of right shoulder, not specified as traumatic (principal)
CPT/HCPCS: 73221

== ENCOUNTER 2017-08-30 11:50 | Outpatient (CLI) | payer BC, MEDICARE, SELFPAY ==
[2017-08-30] VITALS (10 sets, daily range): BP systolic 103–162; BP diastolic 54–79; PULSE 74–87; RESP 16–18
== END 2017-08-30 15:25 | disposition home or self-care (01) ==
LOC: INF 12:04
PROVIDERS: PCP Family Medicine; Visit Provider Specialist
DX: K50.90 Crohn's disease, unspecified, without complications (principal)
CPT/HCPCS: 96413; 96415; J1745

== ENCOUNTER 2017-10-16 12:00 | Outpatient (CLI) | payer BC, MEDICARE, SELFPAY ==
[2017-10-16] VITALS (10 sets, daily range): BP systolic 108–125; BP diastolic 53–77; PULSE 73–88; RESP 16–18; TEMP 36.7
== END 2017-10-16 15:25 | disposition home or self-care (01) ==
LOC: INF 12:13
PROVIDERS: PCP Family Medicine; Visit Provider Specialist
DX: K50.90 Crohn's disease, unspecified, without complications (principal)
CPT/HCPCS: 96413; 96415; J1745

== ENCOUNTER 2017-12-05 11:55 | Outpatient (CLI) | payer BC, MEDICARE, SELFPAY ==
[2017-12-05] VITALS (9 sets, daily range): BP systolic 108–135; BP diastolic 52–79; PULSE 74–85; RESP 16–20; TEMP 36.5–36.7; O2SAT 97–98
== END 2017-12-05 15:10 | disposition home or self-care (01) ==
LOC: INF 12:02
PROVIDERS: PCP Family Medicine; Visit Provider Specialist
DX: K50.90 Crohn's disease, unspecified, without complications (principal)
CPT/HCPCS: 96413; 96415; J1745

== ENCOUNTER 2018-01-31 11:55 | Outpatient (CLI) | payer BC, MEDICARE, SELFPAY ==
[2018-01-31] VITALS (10 sets, daily range): BP systolic 111–140; BP diastolic 68–81; PULSE 75–86; RESP 16–18; O2SAT 96
== END 2018-01-31 15:25 | disposition home or self-care (01) ==
LOC: INF 12:12
PROVIDERS: Visit Provider Specialist
DX: K50.90 Crohn's disease, unspecified, without complications (principal)
CPT/HCPCS: 96413; 96415; J1745

== ENCOUNTER 2018-03-28 11:45 | Outpatient (CLI) | payer BC, MEDICARE, SELFPAY ==
[2018-03-28] VITALS (10 sets, daily range): BP systolic 107–143; BP diastolic 58–80; PULSE 81–94; RESP 16–18; O2SAT 98
== END 2018-03-28 15:35 | disposition home or self-care (01) ==
PROVIDERS: Visit Provider Specialist
DX: K50.90 Crohn's disease, unspecified, without complications (principal)
CPT/HCPCS: 96413; 96415; J1745

== ENCOUNTER → 2018-05-20 12:33 | Outpatient (CLI) | payer MEDICARE, BC, SELFPAY ==
[2018-05-20] VITALS (8 sets, daily range): BP systolic 118–135; BP diastolic 65–74; PULSE 66–90; RESP 20; TEMP 36.9; O2SAT 95
== END ==
PROVIDERS: Visit Provider Specialist
DX: K50.90 Crohn's disease, unspecified, without complications (principal)
CPT/HCPCS: 96413; 96415; J1745

== ENCOUNTER 2018-07-07 12:37 | Outpatient (CLI) | payer MEDICARE, BC, SELFPAY ==
[2018-07-07] VITALS (7 sets, daily range): BP systolic 118–128; BP diastolic 74–78; PULSE 68–81; RESP 20; TEMP 36.9; O2SAT 95
== END 2018-07-07 15:45 | disposition home or self-care (01) ==
LOC: INF 12:37
PROVIDERS: Visit Provider Specialist
DX: K50.90 Crohn's disease, unspecified, without complications (principal)
CPT/HCPCS: 96413; 96415; J1745

== ENCOUNTER 2018-08-25 12:15 | Outpatient (CLI) | payer MEDICARE, BC, SELFPAY ==
[2018-08-25] VITALS (11 sets, daily range): BP systolic 116–155; BP diastolic 57–82; PULSE 71–92; RESP 16–18; TEMP 36.6; O2SAT 96
== END 2018-08-25 15:15 | disposition home or self-care (01) ==
LOC: INF 12:22
PROVIDERS: Visit Provider Specialist
DX: K50.90 Crohn's disease, unspecified, without complications (principal)
CPT/HCPCS: 96413; 96415; J1745

== ENCOUNTER 2018-10-13 12:19 | Outpatient (CLI) | payer MEDICARE, BC, SELFPAY ==
[2018-10-13] VITALS (11 sets, daily range): BP systolic 134–161; BP diastolic 70–94; PULSE 72–88; RESP 16–18; TEMP 36.7
== END 2018-10-13 15:30 | disposition home or self-care (01) ==
LOC: INF 12:19
PROVIDERS: Visit Provider Specialist
DX: K50.90 Crohn's disease, unspecified, without complications (principal)
CPT/HCPCS: 96413; 96415; J1745

== ENCOUNTER 2018-12-01 12:23 | Outpatient (CLI) | payer MEDICARE, BC, SELFPAY ==
[2018-12-01 13:29] VITALS: BP 137/76; PULSE 77; RESP 18; O2SAT 98
[2018-12-01 14:15] VITALS: BP 124/73; PULSE 76; RESP 18
[2018-12-01 14:55] VITALS: BP 137/73; PULSE 93; RESP 18
[2018-12-01 15:27] VITALS: BP 131/73; PULSE 76; RESP 18
[2018-12-01 16:00] VITALS: BP 115/70; PULSE 77; RESP 18
[2018-12-01 16:39] VITALS: BP 114/73; PULSE 75; RESP 18
== END 2018-12-01 16:40 | disposition home or self-care (01) ==
LOC: INF 12:23
PROVIDERS: Visit Provider Specialist
DX: K50.90 Crohn's disease, unspecified, without complications (principal)
CPT/HCPCS: 96413; 96415; J1745

== ENCOUNTER 2019-01-19 12:05 | Outpatient (CLI) | payer MEDICARE, BC, SELFPAY ==
[2019-01-19] VITALS (8 sets, daily range): BP systolic 119–136; BP diastolic 62–72; PULSE 87–94; RESP 20; TEMP 36.2; O2SAT 97–98
== END 2019-01-19 15:46 | disposition home or self-care (01) ==
LOC: INF 12:26
PROVIDERS: Visit Provider Specialist
DX: K50.90 Crohn's disease, unspecified, without complications (principal)
CPT/HCPCS: 96413; 96415; J1745

== ENCOUNTER 2019-03-09 11:15 | Outpatient (CLI) | payer MEDICARE, BC, SELFPAY ==
[2019-03-09] VITALS (8 sets, daily range): BP systolic 103–133; BP diastolic 59–80; PULSE 77–84; RESP 18; TEMP 36.6; O2SAT 98–100
== END 2019-03-09 14:45 | disposition home or self-care (01) ==
LOC: INF 11:15
PROVIDERS: Visit Provider Specialist
DX: K50.90 Crohn's disease, unspecified, without complications (principal)
CPT/HCPCS: 96413; 96415; J1745

== ENCOUNTER 2019-04-27 12:06 | Outpatient (CLI) | payer MEDICARE, BC, SELFPAY ==
[2019-04-27] VITALS (10 sets, daily range): BP systolic 116–166; BP diastolic 59–92; PULSE 76–85; RESP 18
== END 2019-04-27 15:10 | disposition home or self-care (01) ==
LOC: INF 12:06
DX: K50.90 Crohn's disease, unspecified, without complications (principal)
CPT/HCPCS: 96413; 96415; J1745

== ENCOUNTER 2019-06-15 10:59 | Outpatient (CLI) | payer MEDICARE, BC, SELFPAY ==
[2019-06-15] VITALS (8 sets, daily range): BP systolic 121–152; BP diastolic 76–82; PULSE 81–99; RESP 18; TEMP 36.6; O2SAT 98–99
== END 2019-06-15 14:23 | disposition home or self-care (01) ==
LOC: INF 10:59
PROVIDERS: Visit Provider Specialist
DX: K50.90 Crohn's disease, unspecified, without complications (principal)
CPT/HCPCS: 96413; 96415; J1745

== ENCOUNTER 2019-08-03 11:05 | Outpatient (CLI) | payer MEDICARE, BC, SELFPAY ==
[2019-08-03] VITALS (11 sets, daily range): BP systolic 123–160; BP diastolic 60–111; PULSE 71–82; RESP 18
== END 2019-08-03 14:05 | disposition home or self-care (01) ==
LOC: INF 11:27
DX: K50.90 Crohn's disease, unspecified, without complications (principal)
CPT/HCPCS: 96413; 96415; J1745

== ENCOUNTER 2019-09-21 11:00 | Outpatient (CLI) | payer MEDICARE, BC, SELFPAY ==
[2019-09-21] VITALS (8 sets, daily range): BP systolic 122–131; BP diastolic 59–79; PULSE 84–93; RESP 18; TEMP 36.7; O2SAT 97–98
== END 2019-09-21 14:20 | disposition home or self-care (01) ==
LOC: INF 11:21
PROVIDERS: Visit Provider Specialist
DX: K50.90 Crohn's disease, unspecified, without complications (principal)
CPT/HCPCS: 96413; 96415; J1745

== ENCOUNTER 2019-11-09 10:50 | Outpatient (CLI) | payer MEDICARE, BC, SELFPAY ==
[2019-11-09] VITALS (10 sets, daily range): BP systolic 106–145; BP diastolic 55–80; PULSE 73–88; RESP 18; TEMP 36.4; O2SAT 99
== END 2019-11-09 14:20 | disposition home or self-care (01) ==
LOC: INF 11:00
PROVIDERS: Visit Provider Specialist
DX: K50.90 Crohn's disease, unspecified, without complications (principal)
CPT/HCPCS: 96413; 96415; J1745

== ENCOUNTER 2019-12-28 11:05 | Outpatient (CLI) | payer MEDICARE, BC, SELFPAY ==
[2019-12-28] VITALS (9 sets, daily range): BP systolic 113–136; BP diastolic 71–89; PULSE 81–86; RESP 18; TEMP 36.6; O2SAT 98–100
== END 2019-12-28 14:26 | disposition home or self-care (01) ==
LOC: INF 11:05
PROVIDERS: Visit Provider Specialist
DX: K50.90 Crohn's disease, unspecified, without complications (principal)
CPT/HCPCS: 96413; 96415; J1745

== ENCOUNTER 2020-02-15 10:59 | Outpatient (CLI) | payer MEDICARE, BC, SELFPAY ==
[2020-02-15] VITALS (9 sets, daily range): BP systolic 122–134; BP diastolic 68–85; PULSE 70–78; RESP 18; TEMP 36.2; O2SAT 98–100
== END 2020-02-15 14:13 | disposition home or self-care (01) ==
LOC: INF 10:59
PROVIDERS: Visit Provider Specialist
DX: K50.90 Crohn's disease, unspecified, without complications (principal)
CPT/HCPCS: 96413; 96415; J1745

== ENCOUNTER 2020-04-04 11:04 | Outpatient (CLI) | payer MEDICARE, BC, SELFPAY ==
[2020-04-04] VITALS (11 sets, daily range): BP systolic 95–131; BP diastolic 49–77; PULSE 73–88; RESP 18; TEMP 36.2
== END 2020-04-04 14:25 | disposition home or self-care (01) ==
LOC: INF 11:04
PROVIDERS: Visit Provider Specialist
DX: K50.90 Crohn's disease, unspecified, without complications (principal)
CPT/HCPCS: 96413; 96415; J1745

== ENCOUNTER 2020-05-16 10:55 | Outpatient (CLI) | payer MEDICARE, BC, SELFPAY ==
[2020-05-16] VITALS (9 sets, daily range): BP systolic 113–132; BP diastolic 51–77; PULSE 72–84; RESP 18; TEMP 36.2; O2SAT 99–100
== END 2020-05-16 14:15 | disposition home or self-care (01) ==
LOC: INF 11:22
PROVIDERS: Visit Provider Specialist
DX: K50.813 Crohn's disease of both small and large intestine with fistula (principal)
CPT/HCPCS: 96413; 96415; J1745

== ENCOUNTER 2020-07-04 11:41 | Outpatient (CLI) | payer MEDICARE, BC, SELFPAY ==
[2020-07-04] VITALS (8 sets, daily range): BP systolic 108–148; BP diastolic 60–87; PULSE 81–91; RESP 18; TEMP 36.2; O2SAT 98–99
== END 2020-07-04 14:30 | disposition home or self-care (01) ==
LOC: INF 11:41
PROVIDERS: Visit Provider Specialist
DX: K50.813 Crohn's disease of both small and large intestine with fistula (principal)
CPT/HCPCS: 96413; 96415; J1745

== ENCOUNTER 2020-08-22 10:17 | Emergency (ER) | payer MEDICARE, BC, SELFPAY ==
[2020-08-22 10:20] VITALS: BP 125/76; PULSE 90; RESP 21; TEMP 36.9; O2SAT 95; BMI 32.0
--- NOTE | 2020-08-22 10:59 | HMH.EDUTC ---
[facility] Disposition Clinical Impression: Bronchitis Sinusitis Qualifiers: Sinusitis location: unspecified location Chronicity: acute Recurrence: non-recurrent Qualified Code(s): J01.90 - Acute sinusitis, unspecified Disposition: Home, Self-Care Condition on Discharge: Good Instructions: DI for Sinusitis, DI for Acute Bronchitis Additional Instructions: Drink plenty of fluids. Take tylenol or ibuprofen for pain or fever. Take the medications as directed. Follow up with your regular doctor. GO TO THE ER FOR ANY WORSENING SYMPTOMS Don't start the oral steroids (prednisone) until tomorrow, since you had the shot here today. Prescriptions: Promethazine/Dextromethorphan [Promethazine-Dm Syrup] 5 ml PO Q6HP PRN #240 syrup PRN Reason: Cough Transmission Status: Received by [id number] predniSONE [Deltasone 10mg tablet] 10 mg PO BID 3 Days #6 tab Transmission Status: Received by [id number] Azithromycin [Z-Valentín 250mg Tab*] 250 mg PO UD DOSE PK #6 tab Transmission Status: Received by [id number] Referrals: Tobi Jimenez [Primary Care Provider] - Time of Disposition: 11:32 Medical Decision Making - Medical Records Medical records reviewed: No: I reviewed the patient's medical records. - Harry Inquiry Pt receiving controlled substance: No Vital Signs: 08/22/20 10:20 08/22/20 11:19 Temperature 98.5 F 98.5 F Temperature Source Oral Pulse Rate 90 Pulse Rate [Right Brachial] 90 Respiratory Rate 21 21 Blood Pressure 125/76 Blood Pressure [Right Arm] 125/76 Blood Pressure Mean [Right Arm] 92 Blood Pressure Source [Right Arm] Automatic Cuff Blood Pressure Position [Right Arm] Sitting 02 Sat by Pulse Oximetry 95 Oxygen Delivery Method Room Air Orders (Tests/Meds): ED MEDICATIONS Discontinued Medications Generic Name Dose Route Start Last Admin Trade Name Freq PRN Reason Stop Dose Admin Ceftriaxone Sodium 1 gm 08/22/20 11:06 08/22/20 11:18 Ceftriaxone 1gm Vial IM 08/22/20 11:07 1 gm ONCE ONE Administration Protocol Lidocaine HCl 0 ml 08/22/20 11:06 08/22/20 11:18 Lidocaine 1% 5ml Pf Vial IM 08/22/20 11:07 2.1 ml ONCE ONE Administration Methylprednisolone Sodium Succinate 125 mg 05/31/21 11:06 08/22/20 11:18 Methylprednisolone Sod Succ 125mg Vial IM 08/22/20 11:07 125 mg ONCE ONE Administration [facility] HPI - General Stated complaint: bronchits Time Seen by Provider: 08/22/20 10:59 Mode of Arrival: Ambulatory Source of Information: Patient Limitations: No Limitations Description of Symptoms (Recalled from Triage Doc. by RN): PATIENT C/O SINUS PRESSURE, NASAL DRAINAGE AND PRODUCTIVE COUGH WITH CLEAR SPUTUM SINCE SATURDAY HEENT Symptoms (Recalled from RN notes): Yes Resp Symptoms (Recalled from RN notes): Yes Skin Symptoms (Recalled from RN notes): No MS Symptoms (Recalled from RN notes): No Functional Status (Recalled from RN notes): WNL - History of Present Illness Provider Complaint: She states that she has been coughing and having chest and sinus congestion for the past 3 days. - Related Data Home Medications Medication Instructions Recorded Confirmed Zolpidem Tartrate [Ambien 10mg 10 mg PO HS 03/26/17 08/22/20 Tablet] Infliximab [Remicade] 100 mg IV WEEKLY 08/22/20 08/22/20 Previous Rx's Medication Instructions Recorded Azithromycin [Z-Valentín 250mg Tab*] 250 mg PO UD DOSE PK #6 tab 08/22/20 Promethazine/Dextromethorphan 5 ml PO Q6HP PRN #240 syrup 08/22/20 [Promethazine-Dm Syrup] predniSONE [Deltasone 10mg tablet] 10 mg PO BID 3 Days #6 tab 08/22/20 Allergies Allergy/AdvReac Type Severity Reaction Status Date / Time codeine Allergy Intermediate Hives Verified 07/05/17 17:00 Sulfa (Sulfonamide Allergy Intermediate RED RASH Verified 07/05/17 17:00 Antibiotics) FROM TRUE SULFA DRUGS - Worker's Comp Is this a Worker's Comp case?: No [facility] History - Hepatitis
[2020-08-22 11:19] VITALS: BP 125/76; PULSE 90; RESP 21; TEMP 36.9; O2SAT 95
== END 2020-08-22 11:37 | disposition home or self-care (01) ==
PROVIDERS: Emergency Provider Nurse Practitioner Family; PCP Internal Medicine
DX: J20.9 Acute bronchitis, unspecified (principal); J01.90 Acute sinusitis, unspecified; F17.210 Nicotine dependence, cigarettes, uncomplicated; Z88.2 Allergy status to sulfonamides; Z88.5 Allergy status to narcotic agent
CPT/HCPCS: G0463; 96372; 99202

== ENCOUNTER 2020-08-29 10:07 | Emergency (ER) | payer MEDICARE, BC, SELFPAY ==
[2020-08-29 10:18] VITALS: BP 121/77; PULSE 86; RESP 19; TEMP 36.6; O2SAT 99; BMI 28.2
[2020-08-29 10:22] VITALS: BP 121/77; PULSE 86; RESP 19; TEMP 36.6
--- NOTE | 2020-08-29 10:26 | HMH.EDUTC ---
[facility] [place] Clinical Impression: Cough Disposition: Home, Self-Care Condition on Discharge: Good Instructions: DI for Cough -- Adult, Albuterol Oral Inhalation Additional Instructions: ? Monitor temp. Tylenol every 4 hours as needed and / or ibuprofen every 6 hours as needed ( As long as your primary care physician has told you that it ok to take both. For fever/aches/pains ER if no less than 101 despite Tylenol or Motrin ? Humidifier/vaporizer or hot steamy shower ? Inhaler every 4-6 hours as needed like we discussed. If unsure how to use it, ask pharmacist to demonstrate how. Should help open airways and improve cough, wheezing, and shortness of breath ? Mucinex during the day for your cough and cough suppressant only at night. Be sure to drink lots of water. Insurance may not cover a prescriptions for mucinex. Might be cheaper to get 400mg tablets and take 2 tablet in the morning, mid-day and evening with lots of water. *Promethazine DM cough syrup will cause drowsiness. Use only at night. No driving, operating machinery or caring for small children after taking it Follow up with Doctor if no improvement or any worsening of symptoms Follow up IMMEDIATELY for new or worsening of symptoms OR no noticeable improvement over the next 48-72 hours. 911 immediately for any life threatening symptoms such as chest pain or difficulty breathing Prescriptions: Albuterol Sulfate [Proventil-HFA 90mcg/puff Inh] 1 - 2 puffs IH Q4HP PRN #1 inh PRN Reason: Shortness Of Breath Transmission Status: Received by [id number] Referrals: oTbi Jimenez [Primary Care Provider] - As needed Time of Disposition: 10:42 Medical Decision Making - Harry Inquiry Pt receiving controlled substance: No Harry was queried for this patient: No Vital Signs: 08/29/20 10:18 08/29/20 10:22 Temperature 97.8 F 97.8 F Temperature Source Oral Pulse Rate 86 Pulse Rate [Right] 86 Respiratory Rate 19 19 Blood Pressure 121/77 Blood Pressure [Right Arm] 121/77 Blood Pressure Mean [Right Arm] 91 Blood Pressure Source [Right Arm] Automatic Cuff Blood Pressure Position [Right Arm] Sitting 02 Sat by Pulse Oximetry 99 Medical Decision Narrative: Discussed chest xray and patient declined at this time State that she has completed her medication and feels better just wants something to help with cough and she was afraid to take her remicaid injection today [facility] [place] - General Stated complaint: congestion Time Seen by Provider: 08/29/20 10:26 Mode of Arrival: Ambulatory Source of Information: Patient Limitations: No Limitations Description of Symptoms (Recalled from Triage Doc. by RN): pt c/o cought and congestion x2 weeks. HEENT Symptoms (Recalled from RN notes): Yes (sinus pressure) Resp Symptoms (Recalled from RN notes): Yes (cough) Skin Symptoms (Recalled from RN notes): No MS Symptoms (Recalled from RN notes): No Functional Status (Recalled from RN notes): na - History of Present Illness Provider Complaint: Patient is an everyday smoker, state that she was seen and treated about week ago for bronchitis States that she has finished her medication and her sinus drainage is better and no longer having productive cough reports over all feels better but still having cough and feeling like she coughs so much at times that it makes her feel SOB States that she was suppose to get her weekly injection today but she was concerned where she just finished antibiotics and wanted to wait so she came in to see if she could get something else to help with the cough - Related Data Home Medications Medication Instructions Recorded Confirmed Zolpidem Tartrate [Ambien 10mg 10 mg PO HS 03/26/17 08/22/20 Tablet] Infliximab [Remicade] 100 mg IV WEEKLY 08/22/20 08/22/20 Previous Rx's Medication Instructions Recorded Azithromycin [Z-Valentín 250mg Tab*] 250 mg PO UD DOSE PK #6 tab 08/22/20 Promethazine/Dextromethorphan 5 ml PO Q6HP PRN #240 sy
== END 2020-08-29 10:47 | disposition home or self-care (01) ==
PROVIDERS: Emergency Provider Nurse Practitioner; PCP Internal Medicine
DX: R05 Cough (principal); F17.210 Nicotine dependence, cigarettes, uncomplicated; K50.90 Crohn's disease, unspecified, without complications; Z79.899 Other long term (current) drug therapy; Z88.2 Allergy status to sulfonamides; Z88.5 Allergy status to narcotic agent
CPT/HCPCS: 99202; G0463

== ENCOUNTER 2020-08-31 11:14 | Outpatient (CLI) | payer MEDICARE, BC, SELFPAY ==
[2020-08-31] VITALS (10 sets, daily range): BP systolic 91–136; BP diastolic 54–88; PULSE 74–98; RESP 16–18; TEMP 36.8; O2SAT 99
== END 2020-08-31 14:30 | disposition home or self-care (01) ==
LOC: INF 11:14
PROVIDERS: Visit Provider Specialist
DX: K50.813 Crohn's disease of both small and large intestine with fistula (principal)
CPT/HCPCS: 96413; 96415; J1745

== ENCOUNTER 2020-10-26 10:53 | Outpatient (CLI) | payer MEDICARE, BC, SELFPAY ==
[2020-10-26] VITALS (9 sets, daily range): BP systolic 104–139; BP diastolic 54–79; PULSE 72–80; RESP 16; O2SAT 97
== END 2020-10-26 14:10 | disposition home or self-care (01) ==
LOC: INF 10:55
PROVIDERS: PCP Internal Medicine; Visit Provider Specialist
DX: K50.813 Crohn's disease of both small and large intestine with fistula (principal)
CPT/HCPCS: 96413; 96415; J1745

== ENCOUNTER 2020-12-21 11:13 | Outpatient (CLI) | payer MEDICARE, BC, SELFPAY ==
[2020-12-21] VITALS (10 sets, daily range): BP systolic 119–156; BP diastolic 59–88; PULSE 69–86; RESP 16–18; O2SAT 99
== END 2020-12-21 14:55 | disposition home or self-care (01) ==
LOC: INF 11:15
PROVIDERS: Visit Provider Specialist
DX: K50.813 Crohn's disease of both small and large intestine with fistula (principal)
CPT/HCPCS: 96413; 96415; J1745

== ENCOUNTER 2021-02-13 10:57 | Outpatient (CLI) | payer MEDICARE, BC, SELFPAY ==
[2021-02-13] VITALS (10 sets, daily range): BP systolic 105–132; BP diastolic 58–83; PULSE 72–79; RESP 16–18; TEMP 36.4; O2SAT 99
== END 2021-02-13 14:20 | disposition home or self-care (01) ==
LOC: INF 10:59
PROVIDERS: Visit Provider Specialist
DX: K50.813 Crohn's disease of both small and large intestine with fistula (principal)
CPT/HCPCS: 96413; 96415; J1745

== ENCOUNTER 2021-04-03 09:48 | Outpatient (CLI) | payer MEDICARE, OTHER, SELFPAY ==
[2021-04-03] VITALS (7 sets, daily range): BP systolic 111–147; BP diastolic 54–88; PULSE 71–98; RESP 18; O2SAT 98
== END 2021-04-03 13:15 | disposition home or self-care (01) ==
LOC: INF 09:53
PROVIDERS: PCP Internal Medicine; Visit Provider Specialist
DX: K50.813 Crohn's disease of both small and large intestine with fistula (principal)
CPT/HCPCS: 96413; 96415; J1745

== ENCOUNTER 2021-05-29 10:02 | Outpatient (CLI) | payer MEDICARE, OTHER, SELFPAY ==
[2021-05-29 10:20] VITALS: BP 123/74; PULSE 87; RESP 16; TEMP 36.3; O2SAT 100
[2021-05-29 10:41] VITALS: BP 110/65; PULSE 73; RESP 16; TEMP 36.3; O2SAT 100
[2021-05-29 11:10] VITALS: BP 116/64; PULSE 74; RESP 16; TEMP 36.3; O2SAT 100
[2021-05-29 11:40] VITALS: BP 116/60; PULSE 82; RESP 16; TEMP 36.3; O2SAT 100
[2021-05-29 12:52] VITALS: BP 120/88; PULSE 74; RESP 16; TEMP 36.3; O2SAT 100
[2021-05-29 13:05] VITALS: BP 120/70; PULSE 79; RESP 16; TEMP 36.3; O2SAT 100
== END 2021-05-29 13:20 | disposition home or self-care (01) ==
LOC: INF 10:04
PROVIDERS: Visit Provider Specialist
DX: K50.813 Crohn's disease of both small and large intestine with fistula (principal)
CPT/HCPCS: 96365; 96366; J1745

== ENCOUNTER 2021-07-17 10:11 | Outpatient (CLI) | payer MEDICARE, OTHER, SELFPAY ==
[2021-07-17] VITALS (10 sets, daily range): BP systolic 103–146; BP diastolic 52–89; PULSE 73–90; RESP 18; TEMP 36.6; O2SAT 99–100; BMI 33.3
== END 2021-07-17 13:50 | disposition home or self-care (01) ==
LOC: INF 10:14
PROVIDERS: PCP Internal Medicine; Visit Provider Specialist
DX: K50.813 Crohn's disease of both small and large intestine with fistula (principal)
CPT/HCPCS: 96413; 96415; J1745

== ENCOUNTER 2021-09-11 10:03 | Outpatient (CLI) | payer MEDICARE, OTHER, SELFPAY ==
[2021-09-11] VITALS (12 sets, daily range): BP systolic 99–149; BP diastolic 53–80; PULSE 68–85; RESP 18; O2SAT 98
== END 2021-09-11 13:40 | disposition home or self-care (01) ==
PROVIDERS: PCP Internal Medicine; Visit Provider Specialist
DX: K50.813 Crohn's disease of both small and large intestine with fistula (principal)
CPT/HCPCS: 96413; 96415; J1745

== ENCOUNTER 2021-11-06 11:28 | Outpatient (CLI) | payer MEDICARE, OTHER, SELFPAY ==
[2021-11-06] VITALS (8 sets, daily range): BP systolic 113–136; BP diastolic 65–84; PULSE 83–88; RESP 18; TEMP 36.6; O2SAT 97–98
== END 2021-11-06 14:46 | disposition home or self-care (01) ==
LOC: INF 11:29
PROVIDERS: PCP Internal Medicine; Visit Provider Specialist
DX: K50.813 Crohn's disease of both small and large intestine with fistula (principal)
CPT/HCPCS: 96413; 96415; J1745

== ENCOUNTER 2022-01-01 11:13 | Outpatient (CLI) | payer MEDICARE, OTHER, SELFPAY ==
[2022-01-01] VITALS (9 sets, daily range): BP systolic 117–148; BP diastolic 68–79; PULSE 69–88; RESP 18; TEMP 36.4; O2SAT 97–98
== END 2022-01-01 15:03 | disposition home or self-care (01) ==
PROVIDERS: Visit Provider Specialist
DX: K50.813 Crohn's disease of both small and large intestine with fistula (principal)
CPT/HCPCS: 96413; 96415; J1745

== ENCOUNTER 2022-02-26 10:55 | Outpatient (CLI) | payer MEDICARE, OTHER, SELFPAY ==
[2022-02-26 12:00] VITALS: BP 122/74; PULSE 71; RESP 18; O2SAT 98
[2022-02-26 12:30] VITALS: BP 132/72; PULSE 73; RESP 18; TEMP 36.3; O2SAT 98
[2022-02-26 12:55] VITALS: BP 129/72; PULSE 71; RESP 18; O2SAT 99
[2022-02-26 13:30] VITALS: BP 133/71; PULSE 76; RESP 18; O2SAT 98
[2022-02-26 14:00] VITALS: BP 132/74; PULSE 73; RESP 18; O2SAT 99
[2022-02-26 14:12] VITALS: BP 134/72; PULSE 78; RESP 18; O2SAT 99
== END 2022-02-26 14:15 | disposition home or self-care (01) ==
LOC: INF 10:57
PROVIDERS: PCP Internal Medicine; Visit Provider Specialist
DX: K50.813 Crohn's disease of both small and large intestine with fistula (principal)
CPT/HCPCS: 96413; 96415; J1745

== ENCOUNTER 2022-04-26 11:01 | Outpatient (CLI) | payer MEDICARE, OTHER, SELFPAY ==
[2022-04-26] VITALS (7 sets, daily range): BP systolic 98–126; BP diastolic 46–74; PULSE 76–92; RESP 18; TEMP 36.7; O2SAT 100
== END 2022-04-26 14:05 | disposition home or self-care (01) ==
LOC: INF 11:02
PROVIDERS: Visit Provider Specialist
DX: K50.813 Crohn's disease of both small and large intestine with fistula (principal)
CPT/HCPCS: 96413; 96415; J1745

== ENCOUNTER 2022-06-21 10:54 | Outpatient (CLI) | payer MEDICARE, OTHER, SELFPAY ==
[2022-06-21 11:40] VITALS: BP 104/65; PULSE 73; RESP 16; O2SAT 100
[2022-06-21 12:10] VITALS: BP 98/74; PULSE 81; RESP 16
[2022-06-21 12:40] VITALS: BP 116/56; PULSE 81; RESP 16
[2022-06-21 13:10] VITALS: BP 102/52; PULSE 79; RESP 16
[2022-06-21 13:40] VITALS: BP 102/56; PULSE 81; RESP 16
[2022-06-21 14:00] VITALS: BP 108/62; PULSE 82; RESP 16
== END 2022-06-21 14:20 | disposition home or self-care (01) ==
LOC: INF 10:55
PROVIDERS: Visit Provider Specialist
DX: K50.813 Crohn's disease of both small and large intestine with fistula (principal)
CPT/HCPCS: 96413; 96415; J1745

== ENCOUNTER 2022-08-16 11:02 | Outpatient (CLI) | payer MEDICARE, OTHER, SELFPAY ==
[2022-08-16 11:55] VITALS: BP 116/67; PULSE 76; RESP 16; TEMP 36.3; O2SAT 99
[2022-08-16 12:25] VITALS: BP 130/72; PULSE 81; RESP 16
[2022-08-16 12:55] VITALS: BP 96/48; PULSE 84; RESP 16
[2022-08-16 13:25] VITALS: BP 103/59; PULSE 86; RESP 16
[2022-08-16 13:55] VITALS: BP 99/57; PULSE 84; RESP 16
[2022-08-16 14:20] VITALS: BP 110/64; PULSE 78; RESP 16
== END 2022-08-16 14:40 | disposition home or self-care (01) ==
LOC: INF 11:03
PROVIDERS: PCP Internal Medicine; Visit Provider Specialist
DX: K50.813 Crohn's disease of both small and large intestine with fistula (principal)
CPT/HCPCS: 96413; 96415; J1745

== ENCOUNTER 2022-10-09 11:05 | Outpatient (CLI) | payer MEDICARE, OTHER, SELFPAY ==
[2022-10-09] VITALS (7 sets, daily range): BP systolic 102–136; BP diastolic 46–76; PULSE 74–85; RESP 18; O2SAT 100
== END 2022-10-09 14:55 | disposition home or self-care (01) ==
LOC: INF 11:08
PROVIDERS: PCP Internal Medicine; Visit Provider Specialist
DX: K50.813 Crohn's disease of both small and large intestine with fistula (principal)
CPT/HCPCS: 96413; 96415; J1745

== ENCOUNTER 2022-12-11 11:00 | Outpatient (CLI) | payer MEDICARE, OTHER, SELFPAY ==
[2022-12-11] VITALS (7 sets, daily range): BP systolic 101–127; BP diastolic 55–69; PULSE 73–83; RESP 18; O2SAT 97
== END 2022-12-11 14:35 | disposition home or self-care (01) ==
LOC: INF 11:01
PROVIDERS: PCP Internal Medicine; Visit Provider Specialist
DX: K50.813 Crohn's disease of both small and large intestine with fistula (principal)
CPT/HCPCS: 96413; 96415; J1745

== ENCOUNTER 2023-02-05 10:45 | Outpatient (CLI) | payer MEDICARE, OTHER, SELFPAY ==
[2023-02-05] VITALS (9 sets, daily range): BP systolic 130–141; BP diastolic 70–79; PULSE 71–78; RESP 20; TEMP 36.6; O2SAT 97
== END 2023-02-05 14:10 | disposition home or self-care (01) ==
LOC: INF 10:46
PROVIDERS: PCP Internal Medicine; Visit Provider Specialist
DX: K50.813 Crohn's disease of both small and large intestine with fistula (principal)
CPT/HCPCS: 96413; 96415; J1745

== ENCOUNTER 2023-04-04 11:10 | Outpatient (CLI) | payer MEDICARE, OTHER, SELFPAY ==
[2023-04-04] MEDS: diphenhydrAMINE 25MG CAPSULE 25 MG PO (11:21)
[2023-04-04] MEDS: ACETAMINOPHEN 325MG TAB 650 MG PO (11:21)
[2023-04-04] MEDS: SODIUM CHLORIDE 0.9% 50ML BAG 50 ML IV (11:21)
[2023-04-04] MEDS: inFLIXimab 400 MG in 0.9 % SODIUM CHLORIDE 250 ML 83.3329999999999984 MG IV (11:53)
[2023-04-04 12:00] VITALS: BP 140/82; PULSE 82; RESP 17; O2SAT 98
[2023-04-04 12:30] VITALS: BP 142/70; PULSE 90; RESP 16
[2023-04-04 13:00] VITALS: BP 111/59; PULSE 77; RESP 15
[2023-04-04 13:30] VITALS: BP 112/54; PULSE 82; RESP 15
[2023-04-04 14:00] VITALS: BP 110/54; PULSE 84; RESP 15
[2023-04-04 14:25] VITALS: BP 126/68; PULSE 88; RESP 15
== END 2023-04-04 14:47 | disposition home or self-care (01) ==
LOC: INF 11:11
PROVIDERS: PCP Internal Medicine; Visit Provider Specialist
DX: K50.813 Crohn's disease of both small and large intestine with fistula (principal)
CPT/HCPCS: 96413; 96415; J1745

== ENCOUNTER 2023-05-05 10:05 | Emergency (ER) | payer MEDICARE, OTHER, SELFPAY ==
[2023-05-05 10:56] VITALS: BP 147/81; PULSE 86; RESP 18; TEMP 36.6; O2SAT 96; BMI 31.4
--- NOTE | 2023-05-05 10:58 | EXP.UTC ---
Discharge Plan Disposition Patient Disposition: Home, Self-Care Condition: Good Prescriptions Prescriptions: New amoxicillin [amoxicillin] 875 mg tablet 875 mg PO Q12H Qty: 20 0RF benzonatate [benzonatate] 100 mg capsule 100 mg PO TIDP PRN (Reason: Cough) Qty: 30 0RF methylprednisolone 4 mg Tablets,Dose Pack 4 mg PO DIRECTED 6 Days Qty: 21 0RF Rx Instructions: Take 1 pack as directed for 6 days guaifenesin [Mucinex] 600 mg tablet extended release 12hr 600 - 1,200 mg PO BIDP PRN (Reason: Congestion) Qty: 30 0RF No Action zolpidem [Ambien] 10 MG tablet 10 mg PO HS infliximab 100 MG recon soln 100 mg IV DIRECTED promethazine-DM 120 ML syrup 5 ml PO Q6HP PRN (Reason: Cough) Qty: 240 0RF albuterol sulfate 200 PUFFS HFA aerosol inhaler 1 - 2 puffs IH Q4HP PRN (Reason: Shortness Of Breath) Qty: 1 0RF Referrals Follow up/Referrals: Tobi Jimenez MD [Primary Care Provider] - See instructions Activity Restrictions/Add. Instructions Additional Instructions/Restrictions: Drink plenty of fluids. Take tylenol or ibuprofen for pain or fever. Take the medications as directed. Follow up with your regular doctor. GO TO THE ER FOR ANY WORSENING SYMPTOMS Don't start the oral steroids until tomorrow, since you had the shot here today. Clinical Impressions Clinical Impression: Sinusitis Instructions Patient Instructions: Sinusitis, DI for Sinusitis Discharge ED Provider: Juan Maciel [facility] General Stated complaint: coughing fits, Time Seen by Provider: 05/05/23 10:58 Related Data Home Medications Medication Instructions Recorded Confirmed zolpidem 10 mg tablet (Ambien) 10 mg PO HS Insomnia 03/26/17 04/04/23 infliximab 100 mg intravenous 100 mg IV DIRECTED CROHNS 08/22/20 04/04/23 solution Previous Rx's Medication Instructions Recorded promethazine-DM 6.25 mg-15 mg/5 mL 5 ml PO Q6HP PRN Cough ##240 08/22/20 oral syrup albuterol sulfate 90 mcg/actuation 1 - 2 puffs IH Q4HP PRN Shortness 08/29/20 aerosol inhaler Of Breath #1 inh amoxicillin 875 mg tablet 875 mg PO Q12H #20 tabs 05/05/23 benzonatate 100 mg capsule 100 mg PO TIDP PRN Cough #30 caps 05/05/23 guaifenesin 600 mg tablet, 600 - 1,200 mg PO BIDP PRN 05/05/23 extended release 12 hr (Mucinex) Congestion #30 tabs methylprednisolone 4 mg tablets in 4 mg PO DIRECTED 6 days #21 tabs 05/05/23 a dose pack Allergies Allergy/AdvReac Type Severity Reaction Status Date / Time codeine Allergy Intermediate Hives Verified 02/05/23 17:17 Sulfa (Sulfonamide Allergy Intermediate RED RASH Verified 02/05/23 17:17 Antibiotics) FROM TRUE SULFA DRUGS [facility] Disclaimer: The information contained in this section may have been updated after the patient was seen, as this information can be updated by other users. Medical History (Updated 05/05/23 @ 11:58 by Juan Maciel APRN) Abnormal colonoscopy Acute Crohn's disease GERD (gastroesophageal reflux disease) Surgical History H/O tubal ligation History of appendectomy History of cholecystectomy History of colon resection Family History Other No significant family history Social History Smoking Status: Current every day smoker tobacco type: cigarettes packs per day: 1 alcohol intake: never current occupational status: disabled Travel in the last 8 weeks: Inside the [place] household members: spouse housing: house marital status: education level: high school current occupational exposures/hazards: No ROS Obtained: Yes All systems reviewed & no additional complaints except as documented Constitutional Constitutional: Reports chills and Reports fever(s) Eyes Eyes: Denies eye discharge ENT Ears, Nose, Mouth, and Throat: Reports as per HPI Cardiovascular Cardiovascular: Denies chest pain Respiratory Respiratory: Denies chest congestion and Reports cough Gastrointestinal Gastrointestingal: Reports nausea; Denies abdominal pain, constipation, cramping, diarrhea or vomiting Musculoskeletal Musculoskeletal: Denies arthralgias Integumentary/Breasts Skin/Breast: Denies rash Neurologic Neurologic: Denies paresthesias Physical Exam General General appearance: alert and in no apparent distress Eye Eye exam: Present normal appearance, PERRL and EOMI ENT ENT exam: Present mucous membranes moist and normal external ear exam Expanded ENT Exam External ear exam: Present normal external inspection TM/Canal exam: Bilateral TM: erythema and bulging Nose exam: Absent sinus tenderness Nasal speculum exam: Bilateral: normal Mouth exam: Present normal external inspection; Absent drooling Teeth exam: Present normal inspection Throat exam: Present tonsillar erythema and tonsillomegaly Neck Neck exam: Present normal inspection, full ROM and trachea midline; Absent tenderness, lymphadenopathy or thyromegaly Chest Chest inspection: Present normal inspection and symmetric chest wall rise; Absent tenderness or rash Respiratory Respiratory exam: Present normal lung sounds bilaterally; Absent respiratory distress, wheezes, stridor or accessory muscle use Cardiovascular Cardiovascular exam: Present regular rate, normal rhythm and normal heart sounds Abdominal Exam Abdominal exam: Present soft; Absent distention, tenderness, guarding, rebound or rigidity Extremities Exam Extremities exam: Present normal inspection, full ROM and normal capillary refill; Absent tenderness or calf tenderness Back Exam Back exam: Present normal inspection and full ROM; Absent tenderness Neurological Exam Neurological exam: Present alert and oriented X3 Psychiatric Psychiatric exam: Present normal affect and normal mood Skin Skin exam: Present warm, dry, intact and normal color Lymphatic Lymphatic Findings: no adenopathy Medical Decision Making Medical Records Medical records reviewed: No I reviewed the patient's medical records. Harry Inquiry Pt receiving controlled substance: No
[2023-05-05] MEDS: cefTRIAXone 1GM VIAL 1 GM IM (11:19)
[2023-05-05] MEDS: DEXAMETHASONE 4MG/ML 1ML VIAL 8 MG IM (11:19)
[2023-05-05] MEDS: LIDOCAINE 1% 5ML PF VIAL IM (11:19)
[2023-05-05 12:03] VITALS: BP 147/81; PULSE 86; RESP 18; TEMP 36.6; O2SAT 96
== END 2023-05-05 12:03 | disposition home or self-care (01) ==
PROVIDERS: Emergency Provider Nurse Practitioner Family; PCP Internal Medicine
DX: J01.90 Acute sinusitis, unspecified (principal); R05.9 Cough, unspecified; R50.9 Fever, unspecified; F17.210 Nicotine dependence, cigarettes, uncomplicated; K21.9 Gastro-esophageal reflux disease without esophagitis
CPT/HCPCS: 96372; 99212; 99214; G0463; J0696

== ENCOUNTER 2023-05-30 11:20 | Outpatient (CLI) | payer MEDICARE, OTHER, SELFPAY ==
[2023-05-30] MEDS: diphenhydrAMINE 25MG CAPSULE 25 MG PO (11:30)
[2023-05-30] MEDS: ACETAMINOPHEN 325MG TAB 650 MG PO (11:30)
[2023-05-30] MEDS: SODIUM CHLORIDE 0.9% 50ML BAG 50 ML IV (12:00)
[2023-05-30] MEDS: inFLIXimab 400 MG in 0.9 % SODIUM CHLORIDE 250 ML 83.3329999999999984 MG IV (12:05)
[2023-05-30 12:15] VITALS: BP 124/78; PULSE 76; RESP 18; O2SAT 98
[2023-05-30 12:45] VITALS: BP 124/71; PULSE 73
[2023-05-30 13:15] VITALS: BP 131/68; PULSE 74
[2023-05-30 13:45] VITALS: BP 128/72; PULSE 70
[2023-05-30 14:15] VITALS: BP 122/74; PULSE 73
[2023-05-30 14:40] VITALS: BP 130/69; PULSE 81
== END 2023-05-30 14:51 | disposition home or self-care (01) ==
LOC: INF 11:22
PROVIDERS: Visit Provider Specialist
DX: K50.813 Crohn's disease of both small and large intestine with fistula (principal)
CPT/HCPCS: 96413; 96415; J1745

== ENCOUNTER 2023-07-25 11:04 | Outpatient (CLI) | payer OTHER, MEDICARE, SELFPAY ==
--- NOTE | 2023-07-25 15:32 | PC.NURSE ---
07/25/2023 1110. pt reported to outpt infusion area for scheduled infusion. No available seating was available at the time and explained to pt that it would be a short wait time and a chair would be available soon. Offered to let the pt wait in the waiting area or told pt she could leave and return in approx 30 min or she could reschedule for another time. Pt states that she would reschedule for a different day to return. Pt appt rescheduled for the following saturday per pt request.
== END 2023-07-25 23:59 | disposition home or self-care (01) ==
LOC: INF 11:05
PROVIDERS: PCP Internal Medicine; Visit Provider Specialist
DX: K50.813 Crohn's disease of both small and large intestine with fistula (principal)

== ENCOUNTER 2023-07-29 10:52 | Outpatient (CLI) | payer MEDICARE, OTHER, SELFPAY ==
[2023-07-29] VITALS (8 sets, daily range): BP systolic 114–127; BP diastolic 61–76; PULSE 72–80; RESP 17–18; O2SAT 99–100
[2023-07-29] MEDS: diphenhydrAMINE 25MG CAPSULE 25 MG PO (10:55)
[2023-07-29] MEDS: ACETAMINOPHEN 325MG TAB 650 MG (10:55)
[2023-07-29] MEDS: 0.9 % SODIUM CHLORIDE 50 ML 100 ML IV (11:32)
[2023-07-29] MEDS: inFLIXimab 400 MG in 0.9 % SODIUM CHLORIDE 250 ML 83.3329999999999984 MG IV (11:32)
== END 2023-07-29 14:20 | disposition home or self-care (01) ==
LOC: INF 10:53
PROVIDERS: Visit Provider Specialist
DX: K50.813 Crohn's disease of both small and large intestine with fistula (principal)
CPT/HCPCS: 96413; 96415; J1745

== ENCOUNTER 2023-09-23 10:55 | Outpatient (CLI) | payer MEDICARE, OTHER, SELFPAY ==
[2023-09-23] VITALS (8 sets, daily range): BP systolic 103–134; BP diastolic 48–77; PULSE 70–84; RESP 18; TEMP 36.6; O2SAT 98–99
[2023-09-23] MEDS: 0.9 % SODIUM CHLORIDE 50 ML 100 ML IV (11:06)
[2023-09-23] MEDS: ACETAMINOPHEN 325MG TAB 650 MG (11:06)
[2023-09-23] MEDS: diphenhydrAMINE 25MG CAPSULE 25 MG PO (11:06)
[2023-09-23] MEDS: inFLIXimab 400 MG in 0.9 % SODIUM CHLORIDE 250 ML 83.333 MG IV (11:51)
== END 2023-09-23 14:30 | disposition home or self-care (01) ==
LOC: INF 10:58
PROVIDERS: PCP Internal Medicine; Visit Provider Specialist
DX: K50.813 Crohn's disease of both small and large intestine with fistula (principal); Z79.620 Long term (current) use of immunosuppressive biologic; Z51.12 Encounter for antineoplastic immunotherapy
CPT/HCPCS: 96413; 96415; J1745

== ENCOUNTER 2023-11-18 10:58 | Outpatient (CLI) | payer MEDICARE, OTHER, SELFPAY ==
[2023-11-18] VITALS (7 sets, daily range): BP systolic 115–140; BP diastolic 53–78; PULSE 71–79; RESP 17–18; O2SAT 100
== END 2023-11-18 23:59 | disposition home or self-care (01) ==
LOC: INF 10:59
PROVIDERS: PCP Internal Medicine; Visit Provider Specialist
DX: Z51.12 Encounter for antineoplastic immunotherapy (principal); K50.813 Crohn's disease of both small and large intestine with fistula; Z79.620 Long term (current) use of immunosuppressive biologic
CPT/HCPCS: 96413; 96415; J1745

== ENCOUNTER 2024-01-22 10:59 | Outpatient (CLI) | payer MEDICARE, OTHER, SELFPAY ==
[2024-01-22] VITALS (9 sets, daily range): BP systolic 90–121; BP diastolic 46–71; PULSE 83–92; RESP 18; O2SAT 97–98
[2024-01-22] MEDS: diphenhydrAMINE 25MG CAPSULE 25 MG PO (11:25)
[2024-01-22] MEDS: ACETAMINOPHEN 325MG TAB 650 MG PO (11:25)
[2024-01-22] MEDS: SODIUM CHLORIDE 0.9% 10ML FLUSH SYRINGE 10 ML IV (11:47)
[2024-01-22] MEDS: inFLIXimab 400 MG in 0.9 % SODIUM CHLORIDE 250 ML 83.333 MG IV (11:50)
[2024-01-22] MEDS: SODIUM CHLORIDE 0.9% 50ML BAG 50 ML IV (11:58)
== END 2024-01-22 14:44 | disposition home or self-care (01) ==
LOC: INF 11:00
PROVIDERS: PCP Internal Medicine; Visit Provider Specialist
DX: K50.813 Crohn's disease of both small and large intestine with fistula (principal)
CPT/HCPCS: 96413; 96415; J1745

== ENCOUNTER 2024-03-16 11:31 | Outpatient (CLI) | payer MEDICARE, OTHER, SELFPAY ==
[2024-03-16] MEDS: ACETAMINOPHEN 325MG TAB 650 MG PO (11:49)
[2024-03-16] MEDS: diphenhydrAMINE 25MG CAPSULE 25 MG PO (11:49)
[2024-03-16] MEDS: inFLIXimab 400 MG in 0.9 % SODIUM CHLORIDE 250 ML 83.333 MG IV (12:24)
[2024-03-16 12:30] VITALS: BP 147/73; PULSE 71; RESP 18
[2024-03-16 13:00] VITALS: BP 135/66; PULSE 85
[2024-03-16 13:30] VITALS: BP 137/80; PULSE 88
[2024-03-16 14:00] VITALS: BP 149/77; PULSE 90
[2024-03-16 14:30] VITALS: BP 126/68; PULSE 90
[2024-03-16 14:59] VITALS: BP 123/68; PULSE 88
[2024-03-16] MEDS: SODIUM CHLORIDE 0.9% 10ML FLUSH SYRINGE 10 ML IV (15:08)
[2024-03-16] MEDS: SODIUM CHLORIDE 0.9% 50ML BAG 50 ML IV (15:09)
== END 2024-03-16 15:09 | disposition home or self-care (01) ==
LOC: INF 11:34
PROVIDERS: PCP Internal Medicine; Visit Provider Specialist
DX: K50.90 Crohn's disease, unspecified, without complications (principal)
CPT/HCPCS: 96413; 96415; J1745

== ENCOUNTER 2024-05-13 10:31 | Outpatient (CLI) | payer MEDICARE, OTHER, SELFPAY ==
[2024-05-13] MEDS: diphenhydrAMINE 25MG CAPSULE 25 MG PO (10:44)
[2024-05-13] MEDS: ACETAMINOPHEN 325MG TAB 650 MG PO (10:45)
[2024-05-13] MEDS: SODIUM CHLORIDE 0.9% 50ML BAG 50 ML IV (10:45)
[2024-05-13] MEDS: inFLIXimab 400 MG in 0.9 % SODIUM CHLORIDE 250 ML 83.333 MG IV (11:10)
[2024-05-13 11:15] VITALS: BP 117/73; PULSE 82; RESP 17; TEMP 36.4; O2SAT 99
[2024-05-13 11:45] VITALS: BP 125/75; PULSE 80; RESP 17
[2024-05-13 12:15] VITALS: BP 136/63; PULSE 79; RESP 17
[2024-05-13 12:45] VITALS: BP 129/65; PULSE 90; RESP 17
[2024-05-13 13:15] VITALS: BP 128/67; PULSE 91; RESP 16
[2024-05-13 13:40] VITALS: BP 119/66; PULSE 87; RESP 17
== END 2024-05-13 14:00 | disposition home or self-care (01) ==
LOC: INF 10:33
PROVIDERS: PCP Internal Medicine; Visit Provider Specialist
DX: K50.90 Crohn's disease, unspecified, without complications (principal)
CPT/HCPCS: 96413; 96415; J1745

== ENCOUNTER 2024-07-08 11:02 | Outpatient (CLI) | payer MEDICARE, OTHER, SELFPAY ==
[2024-07-08] VITALS (8 sets, daily range): BP systolic 116–138; BP diastolic 58–78; PULSE 80–89; RESP 18–20; TEMP 36.6; O2SAT 97–99
[2024-07-08] MEDS: SODIUM CHLORIDE 0.9% 50ML BAG 50 ML IV (11:19)
[2024-07-08] MEDS: diphenhydrAMINE 25MG CAPSULE 25 MG PO (11:19)
[2024-07-08] MEDS: SODIUM CHLORIDE 0.9% 10ML FLUSH SYRINGE 10 ML IV (11:19)
[2024-07-08] MEDS: ACETAMINOPHEN 325MG TAB 650 MG PO (11:19)
[2024-07-08] MEDS: inFLIXimab 400 MG in 0.9 % SODIUM CHLORIDE 250 ML 83.333 MG IV (11:49)
== END 2024-07-08 14:25 | disposition home or self-care (01) ==
LOC: INF 11:06
PROVIDERS: PCP Internal Medicine; Visit Provider Specialist
DX: K50.90 Crohn's disease, unspecified, without complications (principal)
CPT/HCPCS: 96413; 96415; J1745

== ENCOUNTER 2024-09-02 10:44 | Outpatient (CLI) | payer MEDICARE, OTHER, SELFPAY ==
[2024-09-02] MEDS: SODIUM CHLORIDE 0.9% 50ML BAG 50 ML IV (11:00)
[2024-09-02] MEDS: diphenhydrAMINE 25MG CAPSULE 25 MG PO (11:01)
[2024-09-02] MEDS: ACETAMINOPHEN 325MG TAB 650 MG PO (11:01)
[2024-09-02] MEDS: inFLIXimab 400 MG in 0.9 % SODIUM CHLORIDE 250 ML 83.333 MG IV (11:41)
[2024-09-02 11:50] VITALS: BP 119/75; PULSE 77; RESP 17; O2SAT 98
[2024-09-02 12:20] VITALS: BP 108/68; PULSE 77; RESP 16
[2024-09-02 12:50] VITALS: BP 112/73; PULSE 76; RESP 16
[2024-09-02 13:20] VITALS: BP 117/68; PULSE 74; RESP 16
[2024-09-02 13:50] VITALS: BP 114/75; PULSE 78; RESP 16
[2024-09-02 14:20] VITALS: BP 127/71; PULSE 89; RESP 18
== END 2024-09-02 14:20 | disposition home or self-care (01) ==
LOC: INF 10:46
PROVIDERS: PCP Internal Medicine; Visit Provider Specialist
DX: K50.813 Crohn's disease of both small and large intestine with fistula (principal)
CPT/HCPCS: 96413; 96415; J1745; J7050

== ENCOUNTER 2024-10-28 11:00 | Outpatient (CLI) | payer MEDICARE, OTHER, SELFPAY ==
[2024-10-28] VITALS (7 sets, daily range): BP systolic 98–134; BP diastolic 53–75; PULSE 79–87; RESP 18; O2SAT 97
[2024-10-28] MEDS: ACETAMINOPHEN 325MG TAB 650 MG (11:04)
[2024-10-28] MEDS: 0.9 % SODIUM CHLORIDE 50 ML 100 ML IV (11:05)
--- OUTSIDE RECORDS SUMMARY | 2024-10-28 11:05 | XMS_ITS | Encounter Summary ---
[facility] Address [address] [place] [id number] Care Team Providers Care Director Of Retail Marketing Name Role Phone Tobi Jimenez MD Primary Care Provider [phone] Reason for Visit * Reason Comments Med Refill Encounter Details Date Type Department Care Team (Late st Contact Info) Description 07/27/2022 Refill [facility]ENTEROLOGY [address] [place] [address] [address] [place] [address] Jaycee Gilbert APRN Diarrhea, unspecified type Social History Tobacco Use Types Packs/Day Years Used Date Smoking Tobacco: Every Day Cigarettes Smokeless Tobacco: Never Alcohol Use Standard Drinks/Week Comments No 0 (1 standard drink = 0.6 oz pur e alcohol) Comments Unknown Sex and Gender Information Value Date Recorded Sex Assigned at Not on file Legal Sex Female 11:45 AM EDT Gender Identity Not on file Sexual Orientation Not on file documented as of this encounter Miscellaneous Notes * Telephone Encounter - Justin Bailey MA - 07/27/2022 8:30 AM EDT Patient called stating she would like a refill on cholestyramine (QUESTRAN) 4 GM/DOSE powder. Last refill sent in stated Note to Pharmacy: Needs appt for more refills . She said she would schedule an appointment but not sure she would make it. How to proceed? documented in this encounter Plan of Treatment Not on file documented as of this encounter Visit Diagnoses Diagnosis Diarrhea, unspecified type documented in this encounter Care Teams Director Of Retail Marketing Relationship Specialty Start Date End Date Tobi Jimenez MD PCP - General 11/04/14 documented as of this encounter
--- OUTSIDE RECORDS SUMMARY | 2024-10-28 11:05 | XMS_ITS | Encounter Summary ---
Author Organization [facility] Address [address] [place] [address] Care Team Providers Care Bilingual Student Tutor Name Role Phone Tobi Jimenez MD Primary Care Provider [phone] Reason for Visit * Reason Comments Med Refill Encounter Details Date Type Department Care Team (Late st Contact Info) Description 07/04/[address] [facility] GASTROENTEROLOGY [address] [phone] Ronald Perry MD [address] [place] [id number] Diarrhea, unspecified type Social History Tobacco Use [...] on file documented as of this encounter Plan of Treatment Not on file documented as of this encounter Visit Diagnoses Diagnosis Diarrhea, unspecified type documented in this encounter Care Teams Bilingual Student Tutor Relationship Specialty Start Date End Date Tobi Jimenez MD PCP - General 11/04/14 documented as of this encounter
--- OUTSIDE RECORDS SUMMARY | 2024-10-28 11:05 | XMS_ITS | Clinical Summary ---
[facility] Address [address] [place] [id number] Care Team Providers Care Pneumatic Tube Operator Name Role Phone Tobi Jimenez MD Primary Care Provider [phone] Allergies Active Allergy Reactions Criticality Noted Date Comments Codeine Hives Low 09/18/2016 Elemental Sulfur Rash Low 09/18/2016 Sulfa Antibiotics Other (See Comments) Medium 08/30/19 21 Skin turns red and burn Medications zolpidem (AMBIEN) 10 MG tablet Take 1 tablet by mouth. 7 Active vitamin B-12 (CYANOCOBALAMIN) 1000 MCG tablet Take 1 tablet by mouth Daily. Active folic acid (FOLVITE) 1 MG tablet 8 Active InFLIXimab (REMICADE IV) Infuse into a venous catheter. Active Cholecalciferol (Vitamin D3) 50 MCG (2000 UT) tablet Take by mouth Daily. Active Vitamin A 3 MG (04756 UT) capsule Take 1 capsule by mouth Daily. Active Sod Picosulfate-Mag Ox-Cit Acd 10-3.5-12 MG-GM -GM/160ML solution Take 350 mL by mouth Take As Directed for 1 dose. 350 mL 4 Active cholestyramine (QUESTRAN) 4 GM/DOSE powderIndication s:Diarrhea, unspecified type Take 1 packet by mouth 3 (Three) Times a Day With Meals. 378 g 2 5 Active Active Problems Problem Noted Date Diagnosed Date Bronchitis 01/22/2023 Cough 01/22/2023 Crohn's disease 01/22/2023 Fever and chills 01/22/2023 Immunocompromised, acquired 01/22/2023 Right lower lobe pneumonia 01/22/2023 Severe headache 01/22/2023 Sinusitis 01/22/2023 Morbidly obese 11/10/2019 Social History Tobacco Use Types Packs/Day Years Used Date Smoking Tobacco: Every Day Cigarettes Smokeless Tobacco: Never Tobacco Cessation:Ready to Q uit: Not Asked; Counseling Given: Not Answered Alcohol Use Standard Drinks/Week Comments No 0 (1 standard drink = 0.6 oz pur e alcohol) Abuse Screen Answer Date Recorded Unsafe at Home or Work/School Not on file Feels Threatened by Someone? Not on file 11/2022 Does Anyone Keep You from Co ntacting Others or Doint Things Outside the Home? Not on file 12/31/2022 Physical Sign of Abuse Present Not on file 1 Housing Stability Answer Date Recorded Current Living Arrangements Not on file 11/2022 Potentially Unsafe Housing Conditions Not on katerin e 12/31/2022 Family and Community Support Answer Saurabh e Recorded Help with Day-to-Day Activities Not on file 12/31/2022 Lonely or Isolated Not on file 12/31/2022 Employment Answer Date Recorded Do you want help finding or keeping work or a chip b? Not on file 12/31/2022 Disabilities Answer Date Recorded Concentrating, Remembering, or Making Decisions Difficulty Not on file 12/31/2022 Doing Errands Independently Difficulty Not on fi le 12/31/2022 Education Answer Date Recorded Help with school or training? Not on file Preferred Language Not on file 12/31/2022 Comments Unknown Sex and Gender Information Value Date Recorded Sex Assigned at Not on file Legal Sex Female 11:45 AM EDT Gender Identity Not on file Sexual Orientation Not on file Last Filed Vital Signs Vital Sign Reading Time Taken Comments Blood Pressure 110/70 01/22/2023 1:14 PM EDT Pulse 92 01/22/2023 1:14 PM EDT Temperature 35.9 C (96.6 F) 01/22/2023 1:14 PM EDT Respiratory Rate 16 11/10/2019 2:37 PM EDT Oxygen Saturation 99% 01/22/2023 1:14 PM EDT Inhaled Oxygen Concentration - - Weight 76.1 kg (167 lb 12.8 oz) 01/22/2023 1:14 PM EDT Height 162.6 cm (5' 4 ) 01/22/2023 1:14 PM EDT Body Mass Index 28.8 01/22/2023 1:14 PM EDT Plan of Treatment Health Maintenance Due Date Last Done Comments DXA SCAN 1956 Pneumococcal Vaccine 50+ (1 of 2 - PCV) 1975 TDAP/TD VACCINES (1 - Tdap) 1975 MAMMOGRAM 1996 COLOGUARD 2001 COLON CANCER SCREENING 5 YEA R SIGMOIDOSCOPY 2001 CT COLONOGRAPHY 2001 FECAL OCCULT BLOOD TEST 2001 FIT Testing (1 year) 2001 ZOSTER VACCINE (1 of 2) 2006 ANNUAL WELLNESS VISIT 09/18/2016 HEPATITIS C SCREENING 09/18/2016 COVID-19 Vaccine ( - season) 2023 INFLUENZA VACCINE 12/23/2024 COLONOSCOPY 02/12/2027 02/13/2024, 11/24, 11/19/2016 COLORECTAL CANCER SCREENING 02/12/2027 Procedures Procedure Name Priority Date/Time Associated Diagnosis Comments SCANNED - COLONOSCOPY 02/13/2024 from Last 3 Months or Most Recently Relevant to Health Maintenance Results * Colonoscopy, Scan (02/13/2024) Ronald Perry MD CHART REVIEW TABS Final Res ult from Last 3 Months or Most Recently Relevant to Health Maintenance Insurance [facility] MEDICARE A & B Care Teams Pneumatic Tube Operator Relationship Specialty Start Date End Date Tobi Jimenez MD PCP - General 11/04/14
[2024-10-28] MEDS: inFLIXimab 400 MG in 0.9 % SODIUM CHLORIDE 250 ML 83.333 MG IV (11:34)
== END 2024-10-28 14:15 | disposition home or self-care (01) ==
LOC: INF 11:02
PROVIDERS: Visit Provider Specialist
DX: K50.813 Crohn's disease of both small and large intestine with fistula (principal)
CPT/HCPCS: 96413; 96415; J1745; J7050

== ENCOUNTER 2024-12-23 11:04 | Outpatient (CLI) | payer MEDICARE, OTHER, SELFPAY ==
[2024-12-23] VITALS (8 sets, daily range): BP systolic 101–137; BP diastolic 51–87; PULSE 77–92; RESP 18–20; TEMP 36.9; O2SAT 98–99
[2024-12-23] MEDS: ACETAMINOPHEN 325MG TAB 650 MG PO (11:20)
[2024-12-23] MEDS: SODIUM CHLORIDE 0.9% 10ML FLUSH SYRINGE 10 ML IV (11:50)
[2024-12-23] MEDS: inFLIXimab 400 MG in 0.9 % SODIUM CHLORIDE 250 ML 20 MG IV (11:51)
--- OUTSIDE RECORDS SUMMARY | 2024-12-23 12:20 | XMS_ITS | Encounter Summary ---
Author Organization [facility] Address [address] [place] [address] Care Team Providers Care Business Investor Name Role Phone Tobi Jimenez MD Primary Care Provider [phone] Reason for Visit * Reason Comments Med Refill Encounter Details Date Type Department Care Team (Late st Contact Info) Description 07/04/2020 Refill [facility]STR[facility]ENTEROLOGY [address] [phone] Ronald Perry MD [address] [place] [id number] Diarrhea, unspecified type Social History Tobacco Use [...] type documented in this encounter Care Teams Business Investor Relationship Specialty Start Date End Date Tobi Jimenez MD PCP - General 11/04/14 documented as of this encounter
--- OUTSIDE RECORDS SUMMARY | 2024-12-23 12:20 | XMS_ITS | Encounter Summary ---
[facility] Address [address] [place] [phone] Care Team Providers Care Senior Electronics Engineer Name Role Phone Tobi Jimenez MD Primary Care Provider [phone] Reason for Visit * Reason Comments Med Refill Encounter Details Date Type Department Care Team (Late st Contact Info) Description 07/27/2022 Refill [facility] GASTROENTEROLOGY [address] [place] [address] [address] [place] [address] Jaycee Gilbert APRN Diarrhea, unspecified [...] type documented in this encounter Care Teams Senior Electronics Engineer Relationship Specialty Start Date End Date Tobi Jimenez MD PCP - General 11/04/14 documented as of this encounter
--- OUTSIDE RECORDS SUMMARY | 2024-12-23 12:20 | XMS_ITS | Clinical Summary ---
[facility] Address [address] [place] [phone] Care Team Providers Care Machinist Set Up Name Role Phone Tobi Jimenez MD Primary Care Provider [phone] Allergies Active Allergy Reactions Criticality Noted Date [...] mouth Daily. Active Vitamin A 3 MG (79464 UT) capsule Take 1 capsule by mouth Daily. Active Sod Picosulfate-Mag Ox-Cit Acd 10-3.5-12 MG-GM -GM/160ML solution Take 350 mL by mouth Take As Directed for 1 dose. 350 mL 4 Active cholestyramine (QUESTRAN) 4 GM/DOSE powderIndication s:Diarrhea, unspecified type Take 1 packet by mouth 3 (Three) Times a Day With Meals. 378 g 2 5 Active cholestyramine (QUESTRAN) 4 GM/DOSE powderIndication s:Diarrhea, unspecified type Take 1 packet by mouth 3 (Three) Times a Day With Meals. 378 g 2 5 12/11/19 25 Discontinu ed(Reorder ) Active Problems Problem Noted Date Diagnosed Date Bronchitis 01/22/2023 Cough 01/22/2023 Crohn's disease 01/22/2023 Fever and chills 01/22/2023 Immunocompromised, acquired 01/22/2023 Right lower lobe pneumonia 01/22/2023 Severe headache 01/22/2023 Sinusitis 01/22/2023 Morbidly obese 11/10/2019 Encounters Date Type Department Care Team Description 12/10/2024 Refill [facility] [address] [facility] [address] [place] [address] Ronald Perry MD Diarrhea, unspecified type from Last 3 Months Social History Tobacco Use Types Packs/Day Years [...] WELLNESS VISIT 09/18/2016 HEPATITIS C SCREENING 09/18/2016 INFLUENZA VACCINE 10/23/2024 COVID-19 Vaccine (2 - season) 2024 COLONOSCOPY 02/12/2027 02/13/2024, 11/24, 11/19/2016 COLORECTAL CANCER SCREENING 02/12/2027 Procedures Procedure Name Priority Date/Time Associated Diagnosis Comments SCANNED - COLONOSCOPY 02/13/2024 from Last 3 Months or Most Recently Relevant to Health Maintenance Results * Colonoscopy, Scan (02/13/2024) Ronald Perry MD CHART REVIEW TABS Final Res ult from Last 3 Months or Most Recently Relevant to Health Maintenance Insurance [facility] MEDICARE A & B Care Teams Machinist Set Up Relationship Specialty Start Date End Date Tobi Jimenez MD PCP - General 11/04/14
--- OUTSIDE RECORDS SUMMARY | 2024-12-23 12:20 | XMS_ITS | Encounter Summary ---
Author Organization [facility] Address [address] [place] [id number] Care Team Providers Care District Director Name Role Phone Tobi Jimenez MD Primary Care Provider [phone] Reason for Visit * Reason Onset Date Comments Med Refill 12/10/2024 Encounter Details Date Type Department Care Team (Late st Contact Info) Description 12/10/2024 Refill [facility] GASTROENTEROLOGY [address] [phone] Ronald Perry MD [address] [place] [address] Diarrhea, unspecified type Social History Tobacco Use [...] encounter Miscellaneous Notes * Telephone Encounter - Felisha Farias MA - 12/10/2024 10:07 AM EDT Rx Refill Note Requested Prescriptions Pending Prescriptions Disp Refills cholestyramine (QUESTRAN) 4 GM/DOSE powder 378 g 2 Sig: Take 1 packet by mouth 3 (Three) Times a Day With Meals. Last office visit with prescribing clinician: 01/22/2023 Last telemedicine visit with prescribing clinician: Visit date not found Next office visit with prescribing clinician: Visit date not found Felisha Farias MA 12/10/24, 10:07 EDT * Telephone Encounter - Tien Roldan RMA - 12/10/2024 10:03 AM EDT Ms Reagan called this morning requesting refills for cholestyramine. Thanks documented in this encounter Plan of Treatment Not on file documented as of this encounter Visit Diagnoses Diagnosis Diarrhea, unspecified type documented in this encounter Care Teams District Director Relationship Specialty Start Date End Date Tobi Jimenez MD PCP - General 11/04/14 documented as of this encounter
== END 2024-12-23 23:59 | disposition home or self-care (01) ==
LOC: INF 11:06
PROVIDERS: PCP Internal Medicine; Visit Provider Specialist
DX: K50.813 Crohn's disease of both small and large intestine with fistula (principal)
CPT/HCPCS: 96413; 96415; J1745; J7050

== ENCOUNTER 2025-02-22 11:03 | Outpatient (CLI) | payer MEDICARE, OTHER, SELFPAY ==
[2025-02-22] MEDS: ACETAMINOPHEN 325MG TAB 650 MG PO (11:14)
[2025-02-22 12:05] VITALS: BP 129/75; PULSE 77; RESP 18; O2SAT 98
[2025-02-22] MEDS: inFLIXimab 400 MG in 0.9 % SODIUM CHLORIDE 250 ML 83.33 MG IV (12:05)
[2025-02-22 12:35] VITALS: BP 136/83; PULSE 84; RESP 18; O2SAT 96
[2025-02-22 13:05] VITALS: BP 128/60; PULSE 87; RESP 18; O2SAT 96
[2025-02-22 13:35] VITALS: BP 104/58; PULSE 85; RESP 18; O2SAT 95
[2025-02-22 14:05] VITALS: BP 106/58; PULSE 89; RESP 18; O2SAT 96
[2025-02-22 14:35] VITALS: BP 119/66; PULSE 102; RESP 18; O2SAT 96
== END 2025-02-22 23:59 | disposition home or self-care (01) ==
PROVIDERS: PCP Internal Medicine; Visit Provider Specialist
DX: K50.813 Crohn's disease of both small and large intestine with fistula (principal)
CPT/HCPCS: 96413; 96415; J1745; J7050